=== PATIENT | female | born 1945 | race African-American/Black ===

== ENCOUNTER 2019-11-21 22:43 | Inpatient (IN) | payer MEDICARE, OTHER ==
[~2019-11-21] VITALS: Ht 177.8 cm; Wt 133.0 kg
--- NOTE | 2019-11-21 22:45 | NUR ---
PT BIB EMS FROM [facility] C/O HYPOTENSION SBP 80'S, SOB O2SAT ON 88% RA. PLACED ON 15 LPM PT SATTING 97%. PT AAOX1, SHALLOW RESPIRATIONS NOTED. PT CONNECTED TO THE LABEL CODER AND POX
--- NOTE | 2019-11-21 23:15 | NUR ---
BLOOD COLLECTED AND SENT TO LAB
[2019-11-21 23:23] LABS: BASOPHILS % (AUTO) 0.5 % (0.0-2.0); EOSINOPHILS % (AUTO) 0.1 % (0.0-6.0); HEMATOCRIT 39 % (33-45); HEMOGLOBIN 12.7 g/dL (11.5-14.8); LYMPHOCYTES # (AUTO) 2.2 /CMM (0.8-4.8); LYMPHOCYTES % (AUTO) 25.1 % (20.0-44.0); MEAN CORPUSCULAR HGB CONC 32 g/dl (31.0-36.0); MEAN CORPUSCULAR VOLUME 88 fL (82-100); MONOCYTES # (AUTO) 0.6 /CMM (0.1-1.30); MONOCYTES % (AUTO) 7.2 % (2.0-12.0); NEUTROPHILS # (AUTO) 5.8 /CMM (1.8-8.9); NEUTROPHILS % (AUTO) 67.1 % (43.0-81.0); PLATELET COUNT (AUTO) 191 /CMM (150-450); RED BLOOD CELL COUNT(AUTO) 4.47 MIL/uL (4.0-5.2); WHITE BLOOD COUNT (AUTO) 8.6 K/uL (4.3-11.0)
[2019-11-21] MEDS ORDERED: CEFTRIAXONE 1GM BAG (ER ONLY) 1 GM/50 ML PIGGYBACK IV ONE (23:30)
[2019-11-21] MEDS ORDERED: AZITHROMYCIN 500 MG in IV D5W 250 ML IV ONE (23:30)
[2019-11-21] MEDS ORDERED: IV NS 0.9% 500 ML BAG IV ONE (23:30)
[2019-11-21] MEDS ORDERED: CEFTRIAXONE 1GM BAG (ER ONLY) 50 ML IV ONE (23:46)
[2019-11-21] MEDS ORDERED: AZITHROMYCIN 500 MG VIAL ONE (23:47)
--- NOTE | 2019-11-21 23:49 | NUR ---
URINE COLLECTED AND SENT TO LAB
[2019-11-21 23:51] LABS: CALCIUM, SERUM 8.1 mg/dL (8.5-10.1); CARBON DIOXIDE 21 mmol/L (21-32); CHLORIDE 99 mmol/L (98-107); CREATININE 5.1 mg/dL (0.6-1.3); GLUCOSE 138 mg/dL (74-106); POTASSIUM 4.3 mmol/L (3.5-5.1); SODIUM SERUM 133 mmol/L (136-145); UREA NITROGEN, BLOOD 76 mg/dL (7-18)
[2019-11-22] VITALS (63 sets, daily range): BP systolic 69–179; BP diastolic 36–97
--- NOTE | 2019-11-22 | NUR ---
RT AT BEDSIDE FOR ABG
[2019-11-22 00:03] LABS: ALANINE AMINOTRANSFERASE 31 U/L (12-78); ALKALINE PHOSPHATASE 53 U/L (46-116); ASPARTATE AMINOTRANSFERASE 46 U/L (15-37); B-TYPE NATRIURETIC PEPTIDE 167 PG/ML (0-125); BILIRUBIN,DIRECT 0.1 mg/dL (0.0-0.2); BILIRUBIN,TOTAL 0.3 mg/dL (0.2-1.0); TOTAL PROTEIN, SERUM 7.9 g/dL (6.4-8.2)
[2019-11-22 00:28] LABS: ABG BASE EXCESS -8.7 mmol/L; ABG OXYGEN SATURATION 97.3 % (92.0-98.5); ABG PCO2 37.1 mmHg (35.0-45.0); ABG PH 7.285 (7.350-7.450); ABG PO2 121.1 mmHg (75.0-100.0); AaDO2 554.8 mmHg; COHb 0.3 % (0.5-1.5); MetHb 0.6 % (0.0-1.5); O2Hb 96.4 % (94.0-97.0); SITE, ABG Left Radial; VENT MODE, BG NRB 100%
[2019-11-22] MEDS ORDERED: IV NS 0.9% 500 ML BAG IV ONE (00:30)
[2019-11-22] MEDS ORDERED: PROPOFOL 100 ML ONE (00:55)
[2019-11-22 01:04] LABS: C-REACTIVE PROTEIN 6.8 mg/dL (0.0-0.9)
--- NOTE | 2019-11-22 01:10 | NUR ---
INTUBATION IN PTOGRESS. RT, RN AND DR HERMAN AT BEDSIDE
--- NOTE | 2019-11-22 01:13 | NUR ---
PT INTUBTED BY ER ET-TUBE 7.0FR, 24CM AT THE LIP LINE, (+) COLOR CHANGE ON THE CO2 DETECTOR WITH BILATERAL EQUAL BREATH SOUNDS ON AUSCULTATION.
--- NOTE | 2019-11-22 01:13 | NUR ---
RT NOTE PT INTUBATED WITH 7.5 ET TUBE @ 24 CM LOCATED AT RIGHT LIP LINE. VENT SETTINGS: AC 16, 500, 100%, +5. ET TUBE SECURED VIA ANCHOR FAST. CUFF INFLATED. ALARMS ON AND AUDIBLE. VENT PLUGGED TO RED OUTLET. NO DISTRESS NOTED AT THIS TIME. WILL AWAIT FURTHER ORDERS.
[2019-11-22] MEDS: PROPOFOL 100 ML IV PRN ×5 (01:15→22:22)
[2019-11-22] MEDS ORDERED: PREG50CA PO (01:17)
[2019-11-22] MEDS ORDERED: NPH,100V SQ (01:17)
[2019-11-22] MEDS ORDERED: DIAZ5TAB PO (01:17)
[2019-11-22] MEDS ORDERED: MAGN400O21 PO (01:17)
[2019-11-22] MEDS ORDERED: SENN-261 PO (01:17)
[2019-11-22] MEDS ORDERED: BENA20TA78 PO (01:17)
[2019-11-22] MEDS ORDERED: GLIP5TAB13 PO (01:17)
[2019-11-22] MEDS ORDERED: AMLO10TA7 PO (01:17)
[2019-11-22] MEDS ORDERED: SIMV-46 PO (01:17)
[2019-11-22] MEDS ORDERED: ZOLP12.542 PO (01:17)
[2019-11-22] MEDS ORDERED: BACL10TA PO (01:17)
[2019-11-22] MEDS ORDERED: ESCI5TAB PO (01:17)
[2019-11-22] MEDS ORDERED: ETOMIDATE 2 MG/ML VIAL IV ONE (01:30)
[2019-11-22] MEDS ORDERED: ZOLPIDEM TARTRATE 5 MG TABLET PO PRN (01:30)
[2019-11-22] MEDS ORDERED: ONDANSETRON HCL/PF 4 MG/2 ML VIAL IVP PRN (01:30)
[2019-11-22] MEDS ORDERED: MAGNESIUM HYDROXIDE 30 ML UDC PO PRN (01:30)
[2019-11-22] MEDS ORDERED: Z GUARD REMEDY 2 OZ OINT TP PRN (01:30)
[2019-11-22] MEDS ORDERED: ROCURONIUM BROMIDE 50 MG/5 ML IV ONE (01:30)
[2019-11-22] MEDS ORDERED: DEXTROSE 50%-WATER 50 ML DISP.SYRIN IV PRN (01:30)
--- NOTE | 2019-11-22 01:36 | NUR ---
VENT SETTINGS: AC:16 TV: 500 O2:100% PEEP: 5
--- NOTE | 2019-11-22 01:46 | NUR ---
ICU WILL CALL BACK
--- NOTE | 2019-11-22 02:05 | NUR ---
REPORT GIVEN TO ELISE DELGADO
--- NOTE | 2019-11-22 03:14 | NUR ---
PT TRANSFERRED TO ICU VIA ACLS PROTOCOL
--- NOTE | 2019-11-22 03:16 | NUR ---
RT NOTE PT TRANSFERRED TO ICU IN STABLE CONDITION VIA VENTILATOR. ET TUBE SECURED AND PATENT. ALARMS ON AND AUDIBLE ON VENT. CIRCUIT CLOSED AND PT RECEIVING ADEQUATE VOLUMES. WILL CONTINUE TO MONITOR T/O SHIFT.
[2019-11-22 03:19] LABS: ABG BASE EXCESS -11.4 mmol/L; ABG OXYGEN SATURATION 96.8 % (92.0-98.5); ABG PCO2 46.5 mmHg (35.0-45.0); ABG PH 7.176 (7.350-7.450); ABG PO2 117.8 mmHg (75.0-100.0); AaDO2 548.7 mmHg; COHb 0.3 % (0.5-1.5); MetHb 0.7 % (0.0-1.5); O2Hb 95.8 % (94.0-97.0); SITE, ABG Right Radial
[2019-11-22] MEDS: HYDROXYCHLOROQUINE 200 MG TABLET NG SCH ×2 (03:53→17:04)
[2019-11-22] MEDS: ENOXAPARIN SODIUM 30 MG/0.3 ML DISP.SYRIN SQ SCH ×2 (03:54→22:07)
[2019-11-22] MEDS: IV NS 0.9% 1,000 ML IV PRN ×2 (04:11→18:17)
[2019-11-22 05:00] LABS: BASOPHILS # (AUTO) 0.1 /CMM (0.0-0.2); BASOPHILS % (AUTO) 0.5 % (0.0-2.0); HEMATOCRIT 39 % (33-45); HEMOGLOBIN 12.6 g/dL (11.5-14.8); LYMPHOCYTES # (AUTO) 1.8 /CMM (0.8-4.8); LYMPHOCYTES % (AUTO) 14.8 % (20.0-44.0); MEAN CORPUSCULAR HGB CONC 33 g/dl (31.0-36.0); MEAN CORPUSCULAR VOLUME 88 fL (82-100); MONOCYTES # (AUTO) 0.6 /CMM (0.1-1.30); MONOCYTES % (AUTO) 4.6 % (2.0-12.0); NEUTROPHILS # (AUTO) 9.8 /CMM (1.8-8.9); NEUTROPHILS % (AUTO) 80.1 % (43.0-81.0); PLATELET COUNT (AUTO) 174 /CMM (150-450); RED BLOOD CELL COUNT(AUTO) 4.38 MIL/uL (4.0-5.2); WHITE BLOOD COUNT (AUTO) 12.2 K/uL (4.3-11.0)
[2019-11-22 05:15] LABS: CARBON DIOXIDE 17 mmol/L (21-32); CHLORIDE 101 mmol/L (98-107); GLUCOSE 146 mg/dL (74-106); MAGNESIUM 1.9 mg/dL (1.8-2.4); PHOSPHORUS 6.5 mg/dL (2.5-4.9); POTASSIUM 4.4 mmol/L (3.5-5.1); SODIUM SERUM 134 mmol/L (136-145); UREA NITROGEN, BLOOD 67 mg/dL (7-18)
[2019-11-22 05:22] LABS: CALCIUM, SERUM 7.2 mg/dL (8.5-10.1)
[2019-11-22 05:33] LABS: C-REACTIVE PROTEIN 7.2 mg/dL (0.0-0.9)
[2019-11-22 05:34] LABS: CHOLESTEROL 104 mg/dL (<200); HDL CHOLESTEROL 34 mg/dL (40-60); LDL 45 mg/dL (0-99); TRIGLYCERIDES 222 mg/dL (30-150)
[2019-11-22] MEDS: BLOOD SUGAR DIAGNOSTIC 1 EACH STRIP IN SCH ×3 (06:12→17:06)
[2019-11-22] MEDS: ACETAMINOPHEN 325 MG TABLET PO PRN (06:12)
[2019-11-22] MEDS ORDERED: NOREPINEPHRINE 8MG/250ML RTU 250 ML IV ONE (06:17)
[2019-11-22] MEDS: NOREPINEPHRINE 8 MG in IV NS 0.9% 242 ML IV PRN ×2 (06:37→15:45)
--- NOTE | 2019-11-22 06:38 | NUR ---
FIELD SALES MANAGER NOTE NOTIFIED LUKE ROCHA PT SBP IN THE 70'S WITH ORDERS TO START LEVOPHED TO MAINTAIN SBP >90 AND ORDERED PICC LINE. ORDERS NOTED AND CARRIED OUT. RECEIVED CONSENT FROM JAHAIRA WRIGHT TO INSERT PICC ON PT. WILL MONITOR.
[2019-11-22] MEDS ORDERED: ETOMIDATE 2 MG/ML VIAL ONE (08:00)
[2019-11-22] MEDS ORDERED: ROCURONIUM BROMIDE 50 MG/5 ML ONE (08:00)
[2019-11-22] MEDS ORDERED: INSU100V27 SQ (08:10)
[2019-11-22] MEDS ORDERED: BLOO-668 IN (08:10)
[2019-11-22] MEDS ORDERED: CALC-7 PO (08:10)
[2019-11-22] MEDS ORDERED: GLUC1KIT IM (08:10)
[2019-11-22] MEDS ORDERED: INSU100I26 SQ (08:10)
[2019-11-22] MEDS ORDERED: NA P133E RC (08:10)
[2019-11-22] MEDS ORDERED: MAGN400O6 PO (08:10)
[2019-11-22] MEDS: HYDROCORTISONE SOD SUCCINATE 100 MG/2 ML VIAL IV SCH ×3 (08:16→17:04)
[2019-11-22 08:24] LABS: ABG BASE EXCESS -10.4 mmol/L; ABG OXYGEN SATURATION 97.7 % (92.0-98.5); ABG PCO2 36.8 mmHg (35.0-45.0); ABG PH 7.254 (7.350-7.450); ABG PO2 131.4 mmHg (75.0-100.0); AaDO2 544.8 mmHg; COHb 0.3 % (0.5-1.5); MetHb 0.7 % (0.0-1.5); O2Hb 96.7 % (94.0-97.0); SITE, ABG Right Radial; VENT MODE, BG AC 20 500 100% +5
[2019-11-22] MEDS ORDERED: ENOXAPARIN SODIUM 40 MG/0.4 ML DISP.SYRIN SQ ONE (09:00)
--- NOTE | 2019-11-22 09:45 | NUR ---
MOTORMAN/WOMAN NOTE SEEN BY DR. DELGADO.
--- NOTE | 2019-11-22 11:00 | NUR ---
SUPERVISOR DIE CASTING NOTE DR FOSTER AT BEDSIDE WITH ORDERS TO CHANGE VENT SETTINGS TO AC 26 AND FIO2 85%. WILL MONITOR PT ON VENTILATOR.
[2019-11-22] MEDS: INSULIN REGULAR, HUMAN 100 UNIT/ML 3 ML VIAL SQ PRN ×3 (12:53→17:51)
[2019-11-22] MEDS: PIPERACILLIN /TAZOBACTAM 2.25 G in IV D5W 50 ML IV SCH ×2 (13:13→17:04)
--- NOTE | 2019-11-22 17:00 | NUR ---
COMMERCIAL MARKETING SPECIALIST NOTE PICC LINE NURSE AT BEDSIDE. INSERTED TREVOR PICC TRIPLE LUMEN. PT TOLERATED WELL. WILL MONITOR.
--- NOTE | 2019-11-22 18:27 | NUR ---
JAVA FRONT END WEB DEVELOPER NOTE BLOOD GLUCOSE 438MG/DL, PER PROTOCOL GAVE 10 UNITS REGULAR INSULIN SQ. NOTIFIED DR. DELGADO WITH ORDERS TO GIVE 12 UNITS REGULAR INSULIN IVP X 1 NOW. ORDERS NOTED AND CARRIED OUT. SPOKE WITH DAUGHTER JOHNSON [phone] DELGADO DAUGHTER HAS A FEW QUESTIONS. WILL MONITOR.
[2019-11-22] MEDS ORDERED: INSULIN REGULAR, HUMAN 100 UNIT/ML 3 ML VIAL IV ONE (18:30)
--- NOTE | 2019-11-22 19:25 | NUR ---
ICU/RN NOTES Patient received, sedated with Diprivan at 20 mcg/min/kg, respond to painful stimuli. ETT tube 7.4/24 At the lip line. In no acute distress, breathing even and unlabored. No SOB. No S/S of pain, no facial grimacing. Levophed on hold, BP stable. IV sites with no S/S of infection/infiltration. PICC line intact. Left Nare NGT, intact. Sinus popeye on the monitor. Low grade temperature 99.7. Cooling measures in place. Safety maintained. bed at the lowest locked position. HOB semi Crocker. Isolation precautions maintained. Will continue to monitor as per plan of care. Addendum: 11/23/19 at 2201 by JOSE FLORES RN ETT tube at 7.5/24 lip line
--- NOTE | 2019-11-22 19:46 | NUR ---
RECEIVED PATIENT ORALLY INTUBATED WITH 7.5 ETT SECURED AT 24 CM @ THE LIP ON [facility] VENT WITH NOTED SETTINGS . ALARMS CHECKED AND AUDIBLE. CUFF PRESSURE EMT INTERMEDIATE. AMBU BAG AT [facility]. VENT PLUGGED INTO THE RED OUTLET. SUCTION DONE PRN. NO RESP DISTRESS NOTED. WILL CONT TO MONITOR PATIENT T/O THE SHIFT.
[2019-11-22 21:09] LABS: APPEARANCE,URINE CLEAR (CLEAR); BILIRUBIN,URINE NEGATIVE (NEGATIVE); BLOOD, URINE LARGE Ery/uL (NEGATIVE); COLOR,URINE YELLOW (YELLOW); KETONES,URINE TRACE (NEGATIVE); LEUKOCYTE ESTERASE ,URINE NEGATIVE (NEGATIVE); NITRITE, URINE NEGATIVE (NEGATIVE); PH,URINE 5.5 (5.0-8.0); PROTEIN,URINE 30 mg/dl (NEGATIVE); UGLUCOSE NEGATIVE (NEGATIVE); UROBILINOGEN,URINE 0.2 EU/dL (0.2)
[2019-11-22 21:09] LABS: APPEARANCE,URINE SL CLOUDY (CLEAR); BILIRUBIN,URINE NEGATIVE (NEGATIVE); BLOOD, URINE NEGATIVE Ery/uL (NEGATIVE); COLOR,URINE YELLOW (YELLOW); KETONES,URINE NEGATIVE (NEGATIVE); LEUKOCYTE ESTERASE ,URINE MODERATE (NEGATIVE); NITRITE, URINE NEGATIVE (NEGATIVE); PROTEIN,URINE 100 mg/dl (NEGATIVE); UGLUCOSE NEGATIVE (NEGATIVE); UROBILINOGEN,URINE 0.2 EU/dL (0.2)
[2019-11-22 21:24] LABS: BACTERIA,URINE 3+ /HPF (None Seen); RBC,URINE 0-2 /HPF (0-2); SQUAMOUS EPITHELIAL CELL,UR Few /HPF (None Seen); WBC,URINE 51-80 /HPF (0-3)
[2019-11-22 21:48] LABS: YEAST,URINE Moderate /HPF (None Seen)
[2019-11-22 21:51] LABS: BACTERIA,URINE 1+ /HPF (None Seen); SQUAMOUS EPITHELIAL CELL,UR Few /HPF (None Seen); YEAST,URINE Moderate /HPF (None Seen)
[2019-11-22 21:53] LABS: WBC,URINE 0-2 /HPF (0-3)
[2019-11-22] MEDS ORDERED: AZITHROMYCIN 250 MG in IV D5W 250 ML IV SCH (22:00)
[2019-11-23] VITALS (94 sets, daily range): BP systolic 79–203; BP diastolic 43–94
--- NOTE | 2019-11-23 00:27 | NUR ---
patient temperature 100.3 at this time, cooling measures given, PRN Tylenol given as ordered. Continue to monitor
[2019-11-23] MEDS: PIPERACILLIN /TAZOBACTAM 2.25 G in IV D5W 50 ML IV SCH ×4 (00:32→17:00)
[2019-11-23] MEDS: BLOOD SUGAR DIAGNOSTIC 1 EACH STRIP IN SCH ×4 (00:32→17:50)
[2019-11-23] MEDS: INSULIN REGULAR, HUMAN 100 UNIT/ML 3 ML VIAL SQ PRN ×4 (00:35→17:49)
[2019-11-23] MEDS: ACETAMINOPHEN 325 MG TABLET PO PRN (00:39)
--- NOTE | 2019-11-23 01:08 | NUR ---
Patient temperature went down to 99.4 at this time. will continue to monitor. Cooling measures remained in place.
--- NOTE | 2019-11-23 03:30 | NUR ---
Patient Sinus popeye with rate 43-48 at this time. Blood pressure stable. Called BARREL WASHER Petra Ochoa, relayed vital signs and condition of the patient. She said continue to monitor. with no new order at this time. Patient in no acute distress. Breathing even and unlabored. Will continue to monitor closely
[2019-11-23] MEDS: PROPOFOL 100 ML IV PRN ×5 (03:54→21:34)
[2019-11-23 06:02] LABS: C-REACTIVE PROTEIN 13.5 mg/dL (0.0-0.9)
--- NOTE | 2019-11-23 07:00 | NUR ---
RN NOTES RECEIVED PT ON BED, INTUBATED, SEDATED , ON DIPRIVAN AT 20 MCG/KG/MIN, TOLERATING CURRENT POOJA SETTING WELL,PT ON LEVO AT 0.06 MCG/KG/MIN , NO SOB NOTED, L UPPER ARM PICC LINE SITE CLEAN, DRY AND INTACT, NGT INTACT, SB - SR ON MONITOR, SR UP x3, CALL LIGHT WITHIN EASY REACH, BED LOCKED AND IN LOWEST POSITION, HOB ELEVATED, BED LOCKED AND IN LOWEST POSITION, CONTINUE TO MONITOR.
--- NOTE | 2019-11-23 07:18 | NUR ---
ICU/RN notes Remained in stable condition. In no acute distress. Breathing even and unlabored with prescribed vent settings. Afebrile. Kept clean and dry. needs attendant. Safety maintained. isolation precautions maintained. Endorse to AM shift nurse for ILENE.
[2019-11-23] MEDS: HYDROXYCHLOROQUINE 200 MG TABLET PO SCH ×2 (08:19→22:07)
[2019-11-23] MEDS: HYDROCORTISONE SOD SUCCINATE 100 MG/2 ML VIAL IV SCH ×3 (08:19→16:17)
[2019-11-23 08:45] LABS: ABG BASE EXCESS -10.7 mmol/L; ABG PCO2 32.5 mmHg (35.0-45.0); ABG PH 7.279 (7.350-7.450); ABG PO2 138.6 mmHg (75.0-100.0); AaDO2 433.7 mmHg; COHb 0.3 % (0.5-1.5); MetHb 0.7 % (0.0-1.5); PEEP,BG 5 cm H2O; SITE, ABG Right Radial; VT, ABG 500 mL
--- NOTE | 2019-11-23 08:55 | NUR ---
vent changes below per dr. white: fio2 65% Addendum: 11/23/19 at 0856 by RIVER HENDRICKS RT Amended: Links added.
[2019-11-23 10:57] LABS: CALCIUM, SERUM 6.7 mg/dL (8.5-10.1); CARBON DIOXIDE 16 mmol/L (21-32); CHLORIDE 102 mmol/L (98-107); CREATININE 3.4 mg/dL (0.6-1.3); GLUCOSE 308 mg/dL (74-106); POTASSIUM 4.2 mmol/L (3.5-5.1); SODIUM SERUM 134 mmol/L (136-145); UREA NITROGEN, BLOOD 70 mg/dL (7-18)
[2019-11-23 11:00] LABS: BASOPHILS % (AUTO) 0.4 % (0.0-2.0); HEMATOCRIT 35 % (33-45); HEMOGLOBIN 11.4 g/dL (11.5-14.8); LYMPHOCYTES # (AUTO) 0.7 /CMM (0.8-4.8); LYMPHOCYTES % (AUTO) 5.6 % (20.0-44.0); MEAN CORPUSCULAR HGB CONC 33 g/dl (31.0-36.0); MEAN CORPUSCULAR VOLUME 87 fL (82-100); MONOCYTES # (AUTO) 0.4 /CMM (0.1-1.30); MONOCYTES % (AUTO) 3.5 % (2.0-12.0); NEUTROPHILS % (AUTO) 90.5 % (43.0-81.0); PLATELET COUNT (AUTO) 178 /CMM (150-450); RED BLOOD CELL COUNT(AUTO) 3.99 MIL/uL (4.0-5.2); WHITE BLOOD COUNT (AUTO) 12.2 K/uL (4.3-11.0)
[2019-11-23] MEDS: IV NS 0.9% 1,000 ML IV PRN (11:06)
--- NOTE | 2019-11-23 12:00 | NUR ---
RN NOTES CALL RECEIVED FROM PT'S DAUGHTER THAT SHE WANTS TO TALK TO MD . DR REEVES NOTIFIED VIA ANSWERING SERVICE.
[2019-11-23] MEDS ORDERED: TOCILIZUMAB 400 MG in IV NS 0.9% 80 ML IV ONE (14:00)
--- NOTE | 2019-11-23 15:15 | NUR ---
RN NOTES LEVO GTT RESTARTED DUE TO LOW BP , CONTINUE TO MONITOR
[2019-11-23] MEDS: NOREPINEPHRINE 8 MG in IV NS 0.9% 242 ML IV PRN (16:00)
--- NOTE | 2019-11-23 18:00 | NUR ---
RN NOTES PT REMAINS INTUBATED , SEDATED, ON DIPRIVAN AT 30 MCG/KG/MIN , LEVO AT 0.02 MCG/KG/MIN RUNNING VIA L UPPER ARM PICC LINE , SITE CLEAN, DRY AND INTACT, ON TELE SB-SR , JUNIOR DRAINING TO GRAVITY, SR UP x3, CALL LIGHT WITHIN EASY REACH, BED LOCKED AND IN LOWEST POSITION, WILL ENDORSE TO REPORT ANALYST NURSE FOR CONTINUITY OF CARE.
--- NOTE | 2019-11-23 19:25 | NUR ---
ICU/RN NOTES Patient received, sedated with Diprivan at 30 mcg/min/kg, respond to painful stimuli. ETT tube 7.5/24 At the lip line. In no acute distress, breathing even and unlabored with prescribed vent settings. No SOB. No S/S of pain, no facial grimacing. Levophed at 0.02 mcg/min/kg, BP stable. IV sites with no S/S of infection/infiltration. PICC line intact. Left Nare NGT intact. Sinus popeye on the monitor with rate 44. Safety maintained. bed at the lowest locked position. HOB semi Crocker. Isolation precautions maintained. Will continue to monitor as per plan of care.
--- NOTE | 2019-11-23 21:15 | NUR ---
QTC calculated with Pharmacist Josephine from [facility], Per Josephine it comes up to 502. Called OPERATIONS SYSTEMS SPECIALIST michael Ochoa, relayed Numbers with new order to do STAT EKG for confirmation. Order noted and carried out. Holding Plaquenil until get the results.
--- NOTE | 2019-11-23 21:58 | NUR ---
STAT Ekg results relayed to KRYSTAL Ochoa with order to give the dose of Plaquenil as ordered. Will administer
[2019-11-23] MEDS: ENOXAPARIN SODIUM 30 MG/0.3 ML DISP.SYRIN SQ SCH (22:37)
[2019-11-23 22:53] LABS: ABG BASE EXCESS -9.1 mmol/L; ABG PCO2 31.9 mmHg (35.0-45.0); ABG PH 7.313 (7.350-7.450); AaDO2 316.8 mmHg; PEEP,BG 5 cm H2O; SITE, ABG Right Radial; VT, ABG 500 mL
--- NOTE | 2019-11-23 23:25 | NUR ---
MAXIME's results relayed to Petra Ochoa with no new order at this time. Continue to monitor
[2019-11-24] VITALS (73 sets, daily range): BP systolic 82–159; BP diastolic 42–82
[2019-11-24] MEDS: INSULIN REGULAR, HUMAN 100 UNIT/ML 3 ML VIAL SQ PRN ×5 (01:23→23:48)
[2019-11-24] MEDS: PIPERACILLIN /TAZOBACTAM 2.25 G in IV D5W 50 ML IV SCH ×5 (01:23→23:27)
[2019-11-24] MEDS: PROPOFOL 100 ML IV PRN ×3 (03:11→23:21)
[2019-11-24] MEDS: IV NS 0.9% 1,000 ML IV PRN ×2 (04:57→19:43)
[2019-11-24] MEDS: ACETAMINOPHEN 325 MG TABLET PO PRN ×3 (05:03→19:22)
--- NOTE | 2019-11-24 05:03 | NUR ---
Patient Temperature 100.4 rectal at this time. Cooling measures initiated. PRN Tylenol given. In no acute distress. will monitor closely
[2019-11-24 05:09] LABS: BASOPHILS # (AUTO) 0.1 /CMM (0.0-0.2); BASOPHILS % (AUTO) 0.5 % (0.0-2.0); HEMATOCRIT 37 % (33-45); HEMOGLOBIN 12.1 g/dL (11.5-14.8); LYMPHOCYTES % (AUTO) 5.7 % (20.0-44.0); MEAN CORPUSCULAR HGB CONC 33 g/dl (31.0-36.0); MEAN CORPUSCULAR VOLUME 86 fL (82-100); MONOCYTES # (AUTO) 0.9 /CMM (0.1-1.30); MONOCYTES % (AUTO) 5.2 % (2.0-12.0); NEUTROPHILS # (AUTO) 15.5 /CMM (1.8-8.9); NEUTROPHILS % (AUTO) 88.6 % (43.0-81.0); PLATELET COUNT (AUTO) 235 /CMM (150-450); RED BLOOD CELL COUNT(AUTO) 4.26 MIL/uL (4.0-5.2); WHITE BLOOD COUNT (AUTO) 17.5 K/uL (4.3-11.0)
[2019-11-24 05:10] LABS: CALCIUM, SERUM 7.4 mg/dL (8.5-10.1); CARBON DIOXIDE 17 mmol/L (21-32); CHLORIDE 103 mmol/L (98-107); CREATININE 3.5 mg/dL (0.6-1.3); GLUCOSE 342 mg/dL (74-106); SODIUM SERUM 137 mmol/L (136-145); UREA NITROGEN, BLOOD 73 mg/dL (7-18)
--- NOTE | 2019-11-24 06:42 | NUR ---
Patient temperature still 100.8 rectal, cooling measures are still in place. Continue to monitor.
[2019-11-24] MEDS: BLOOD SUGAR DIAGNOSTIC 1 EACH STRIP IN SCH ×5 (06:51→23:33)
--- NOTE | 2019-11-24 07:18 | NUR ---
Endorse to AM shift nurse for ILENE. In stable condition. In no acute distress. kept clean and dry. Needs attendant.
--- NOTE | 2019-11-24 07:58 | NUR ---
RT PATIENT REC'D ORALLY INTUBATED ON [facility] WITH ORDERED SETTINGS. ETT SECURE AND IN PROPER POSITION. AMBU BAG AT [facility]. AIRWAY SUCTIONED AND PATENT. Addendum: 11/24/19 at 1110 by ROWENA CAMARGO RT Amended: Links added.
--- NOTE | 2019-11-24 08:00 | NUR ---
rn notes received patient,intubated with ett size 7 at 24cm on the lip. sedated with diprivan at 15mcg/kg/min. tolerating current vent setting. breathing unlabored. sating fine. sinus rhythm on the monitor with hr on the 60s. with low dedra fever. no indication of pain noted. ngt on the left nare, in place, clamped at this time. bilateral soft restraints in placce. sarmiento catheter in place draining to clear yellow urine. hob at 30 degree. safety measures in placce. call light within reach. will continue to monitor accordingly
[2019-11-24] MEDS: HYDROXYCHLOROQUINE 200 MG TABLET PO SCH ×2 (09:19→22:03)
[2019-11-24] MEDS: HYDROCORTISONE SOD SUCCINATE 100 MG/2 ML VIAL IV SCH ×3 (09:19→17:24)
[2019-11-24 12:53] LABS: ABG BASE EXCESS -7.6 mmol/L; ABG OXYGEN SATURATION 97.5 % (92.0-98.5); ABG PCO2 30.8 mmHg (35.0-45.0); ABG PH 7.353 (7.350-7.450); ABG PO2 120.9 mmHg (75.0-100.0); AaDO2 309.1 mmHg; COHb 0.3 % (0.5-1.5); MetHb 0.6 % (0.0-1.5); O2Hb 96.6 % (94.0-97.0); SITE, ABG Right Radial
--- NOTE | 2019-11-24 19:27 | NUR ---
rn notes endorsed for continuity of care. not on form of distress. breathing unlabored.tolerating current vent setting. sating fine. still sedated with diprivan at 15mcg/kg/min. all nursing needs attended and met. safety measures in place. call light placed within reach
--- NOTE | 2019-11-24 19:30 | NUR ---
CIGARETTE PAPER TESTER INITIAL SHIFT NOTES RECEIVED PATIENT IN BED, EYES CLOSED, SEDATED ON DIPRIVAN DRIP, ORALLY INTUBATED ON MECHANICAL VENTILATION. JUNIOR AND RECTAL TUBE PATENT AND INTACT, DRAINING WELL. TREVOR PICC WITH DIPRIVAN @ 15MCG/KG/MIN AND NS @ 75ML/HR. ALL PORTS FLUSHED WITH PATENT AND INTACT, FREE FROM ANY S/S OF INFILTRATION OR PHLEBITIS
[2019-11-24] MEDS: ENOXAPARIN SODIUM 30 MG/0.3 ML DISP.SYRIN SQ SCH (22:05)
[2019-11-25] VITALS (54 sets, daily range): BP systolic 101–169; BP diastolic 44–85
[2019-11-25 04:40] LABS: BASOPHILS % (AUTO) 0.1 % (0.0-2.0); HEMATOCRIT 33 % (33-45); LYMPHOCYTES # (AUTO) 0.9 /CMM (0.8-4.8); LYMPHOCYTES % (AUTO) 5.5 % (20.0-44.0); MEAN CORPUSCULAR HGB CONC 33 g/dl (31.0-36.0); MEAN CORPUSCULAR VOLUME 87 fL (82-100); MONOCYTES # (AUTO) 0.7 /CMM (0.1-1.30); MONOCYTES % (AUTO) 4.2 % (2.0-12.0); NEUTROPHILS # (AUTO) 15.2 /CMM (1.8-8.9); NEUTROPHILS % (AUTO) 90.2 % (43.0-81.0); PLATELET COUNT (AUTO) 257 /CMM (150-450); RED BLOOD CELL COUNT(AUTO) 3.83 MIL/uL (4.0-5.2); WHITE BLOOD COUNT (AUTO) 16.8 K/uL (4.3-11.0)
[2019-11-25 04:58] LABS: CALCIUM, SERUM 7.5 mg/dL (8.5-10.1); CARBON DIOXIDE 20 mmol/L (21-32); CHLORIDE 109 mmol/L (98-107); CREATININE 3.8 mg/dL (0.6-1.3); GLUCOSE 260 mg/dL (74-106); POTASSIUM 3.9 mmol/L (3.5-5.1); SODIUM SERUM 141 mmol/L (136-145); UREA NITROGEN, BLOOD 76 mg/dL (7-18)
--- NOTE | 2019-11-25 06:01 | NUR ---
RT NOTE Pt Rec'd orally intubated via ETT sz #7.5 secured at 24cm at the lipline. Pt on [facility] vent on AC mode on noted settings as charted.Pt sx'd for thick mod amt of pale yellow secretions. Alarms are set and audible. Vent plugged into red outlet. ambu bag bedside. Will continue to monitor closely. Addendum: 11/25/19 at 0610 by SANTOSH MEYER RT Amended: Links added.
[2019-11-25] MEDS: BLOOD SUGAR DIAGNOSTIC 1 EACH STRIP IN SCH ×3 (06:49→17:03)
[2019-11-25] MEDS: INSULIN REGULAR, HUMAN 100 UNIT/ML 3 ML VIAL SQ PRN ×3 (06:50→17:06)
[2019-11-25] MEDS: PROPOFOL 100 ML IV PRN ×4 (06:52→22:30)
[2019-11-25] MEDS: PIPERACILLIN /TAZOBACTAM 2.25 G in IV D5W 50 ML IV SCH ×3 (06:55→17:03)
--- NOTE | 2019-11-25 07:00 | NUR ---
STONE OPERATOR NOTES PATIENT RESTING COMFORTABLY, REMAINS ORALLY INTUBATED ON MECHANICAL VENTILATION, DIPRIVAN DRIP @ 15MCG/KG/MIN. NO ACUTE CHANGES THROUGHOUT THE SHIFT. WILL ENDORSE THE PATIENT TO THE AM SHIFT NURSE FOR CONTINUITY OF CARE
--- NOTE | 2019-11-25 07:15 | NUR ---
RN INITIAL NOTES RECEIVED PT INTUBATED, ON VENT. NO RESPIRATORY DISTRESS NOTED. NO SOB NOTED. HOB ELEVATED. PT SEDATED, ON DIPRIVAN AT 15MCG/KG/MIN. NGT IN PLACE, CLAMPED. TREVOR PICC IN PLACE. IVF INFUSING. JUNIOR AND RECTAL TUBE IN PLACE. BLE ELEVATED. FOR WEANING TRIALS TODAY. REPOSITIONING WHEN ABLE. WILL CLOSELY CLOSELY MONITOR
[2019-11-25] MEDS: HYDROXYCHLOROQUINE 200 MG TABLET PO SCH ×2 (08:36→21:07)
[2019-11-25] MEDS: HYDROCORTISONE SOD SUCCINATE 100 MG/2 ML VIAL IV SCH ×3 (08:36→16:27)
--- NOTE | 2019-11-25 09:00 | NUR ---
RN NOTES 0845 SEEN AND EXAMINED BY DR FOSTER. PT OFF SEDATION. OPEN EYES ON VERBAL AND TACTILE STIMULI. PT FOR WEANING TRIALS. WILL CLOSELY MONITOR 0900 SEEN AND EXAMINED BY DR REEVES. AWARE OF LAB VALUES AND CXR RESULT. WILL PUT PT ON SIMV MODE. HOB ELEVATED. WILL CLOSELY MONITOR
[2019-11-25] MEDS: IV NS 0.9% 1,000 ML IV PRN (09:55)
--- NOTE | 2019-11-25 18:46 | NUR ---
RN CLOSING NOTES PT REMAINS INTUBATED, ON VENT. KEPT SEDATED, TITRATED ACCORDINGLY. UNABLE TO TOLERATE WEANING TRIALS. NGT CLAMPED. KEPT CLEAN AND DRY. KEPT COMFORTABLE. BLE ELEVATED. WILL ENDORSE FOR CONTINUITY OF CARE
[2019-11-25] MEDS: ENOXAPARIN SODIUM 30 MG/0.3 ML DISP.SYRIN SQ SCH (21:09)
[2019-11-26] VITALS (30 sets, daily range): BP systolic 99–154; BP diastolic 44–83
[2019-11-26] MEDS: PIPERACILLIN /TAZOBACTAM 2.25 G in IV D5W 50 ML IV SCH ×4 (00:16→17:38)
[2019-11-26] MEDS: IV NS 0.9% 1,000 ML IV PRN ×2 (00:26→14:49)
[2019-11-26] MEDS: BLOOD SUGAR DIAGNOSTIC 1 EACH STRIP IN SCH ×4 (00:40→17:21)
[2019-11-26] MEDS: INSULIN REGULAR, HUMAN 100 UNIT/ML 3 ML VIAL SQ PRN ×4 (00:50→17:22)
--- NOTE | 2019-11-26 04:10 | NUR ---
RN NOTES, RECEIVED PATIENT FROM AMAYA, RN FOR CONTINUATION OF CARE, ON MECHANICAL VENTILATOR TOLERATED SETTINGS WELL, WILL CONTINUE TO MONITOR CLOSELY.
[2019-11-26 04:36] LABS: BASOPHILS # (AUTO) 0.1 /CMM (0.0-0.2); BASOPHILS % (AUTO) 0.4 % (0.0-2.0); HEMATOCRIT 31 % (33-45); HEMOGLOBIN 10.4 g/dL (11.5-14.8); LYMPHOCYTES % (AUTO) 6.2 % (20.0-44.0); MEAN CORPUSCULAR HGB CONC 34 g/dl (31.0-36.0); MEAN CORPUSCULAR VOLUME 86 fL (82-100); MONOCYTES # (AUTO) 0.9 /CMM (0.1-1.30); MONOCYTES % (AUTO) 5.3 % (2.0-12.0); NEUTROPHILS # (AUTO) 14.1 /CMM (1.8-8.9); NEUTROPHILS % (AUTO) 88.1 % (43.0-81.0); PLATELET COUNT (AUTO) 287 /CMM (150-450); RED BLOOD CELL COUNT(AUTO) 3.57 MIL/uL (4.0-5.2)
[2019-11-26 04:50] LABS: CARBON DIOXIDE 22 mmol/L (21-32); CHLORIDE 111 mmol/L (98-107); GLUCOSE 236 mg/dL (74-106); SODIUM SERUM 144 mmol/L (136-145)
[2019-11-26 04:59] LABS: UREA NITROGEN, BLOOD 83 mg/dL (7-18)
[2019-11-26 05:07] LABS: FERRITIN 779 ng/mL (8-388)
[2019-11-26] MEDS: PROPOFOL 100 ML IV PRN ×2 (06:13→11:56)
--- NOTE | 2019-11-26 07:20 | NUR ---
RN NOTES, PATIENT ENDORSED TO HANSEL OLIVARES FOR CONTINUATION OF CARE, PATIENT REMAIN IN STABLE CONDITION, NO DISTRESS/RESP DISTRESS NOTED.
--- NOTE | 2019-11-26 07:20 | NUR ---
RN INITIAL NOTES RECEIVED PT INTUBATED, ON VENT. NO RESPIRATORY DISTRESS NOTED. NO SOB NOTED. HOB ELEVATED. PT SEDATED, ON DIPRIVAN AT 10MCG/KG/MIN. NGT IN PLACE, CLAMPED. TREVOR PICC IN PLACE. IVF INFUSING. JUNIOR AND RECTAL TUBE IN PLACE. BLE ELEVATED. REPOSITIONING WHEN ABLE. WILL CLOSELY CLOSELY MONITOR
[2019-11-26 08:38] LABS: ABG BASE EXCESS -7.5 mmol/L; ABG OXYGEN SATURATION 95.8 % (92.0-98.5); ABG PCO2 32.1 mmHg (35.0-45.0); ABG PH 7.346 (7.350-7.450); ABG PO2 89.8 mmHg (75.0-100.0); AaDO2 230.6 mmHg; COHb 0.3 % (0.5-1.5); MetHb 0.4 % (0.0-1.5); O2Hb 95.1 % (94.0-97.0); PEEP,BG 5 cm H2O; SITE, ABG Right Radial; VT, ABG 500 mL
[2019-11-26] MEDS: HYDROCORTISONE SOD SUCCINATE 100 MG/2 ML VIAL IV SCH ×3 (08:57→17:21)
[2019-11-26] MEDS: HYDROXYCHLOROQUINE 200 MG TABLET PO SCH ×2 (08:57→22:45)
[2019-11-26] MEDS ORDERED: ACETAMINOPHEN 650 MG SUPP.RECT RC ONE (14:00)
[2019-11-26] MEDS ORDERED: diphenhydrAMINE HCL 50 MG/ML VIAL IV ONE (14:00)
[2019-11-26] MEDS ORDERED: ACETAMINOPHEN 650 MG/20.3 ML UDC NG ONE (14:00)
[2019-11-26] MEDS ORDERED: TOCILIZUMAB 400 MG in IV NS 0.9% 80 ML IV ONE (14:30)
--- NOTE | 2019-11-26 18:31 | NUR ---
RN CLOSING NOTES PT REMAINS INTUBATED, ON VENT. NO RESPIRATORY DISTRESS NOTED. KEPT HOB ELEVATED. HR RANGES BETWEEN 40-60S, OSWALDO DUNN DNP AWARE. NGT CLAMPED. KEPT CLEAN AND DRY. KEPT COMFORTABLE. BLE ELEVATED. WILL ENDORSE FOR CONTINUITY OF CARE
--- NOTE | 2019-11-26 20:47 | NUR ---
horticulture worker. initial assessment. received the pt rest on the bed. orally intubated.ett #7,lip 24,ac 26,tv 500,fio2 50%,peep 5. sat 96%, licensed prosthetist/orthotist showing s popeye. fc patent. urine draining. joel soft wrist restraint checked and released. no injury or redness noted flexa seal intact. lt upper arm picc line. ns 75ml/h. hob elevated. lt nare ngt clamped. will continue to monitor vitals.
[2019-11-26] MEDS: ENOXAPARIN SODIUM 30 MG/0.3 ML DISP.SYRIN SQ SCH (22:48)
[2019-11-27] VITALS (50 sets, daily range): BP systolic 116–190; BP diastolic 39–91
[2019-11-27] MEDS: PIPERACILLIN /TAZOBACTAM 2.25 G in IV D5W 50 ML IV SCH ×5 (01:27→23:11)
[2019-11-27] MEDS: PROPOFOL 100 ML IV PRN ×2 (01:30→05:28)
[2019-11-27] MEDS: BLOOD SUGAR DIAGNOSTIC 1 EACH STRIP IN SCH ×5 (01:56→23:53)
[2019-11-27] MEDS: INSULIN REGULAR, HUMAN 100 UNIT/ML 3 ML VIAL SQ PRN ×6 (01:58→23:58)
[2019-11-27 04:58] LABS: BASOPHILS % (AUTO) 0.2 % (0.0-2.0); HEMATOCRIT 32 % (33-45); HEMOGLOBIN 10.5 g/dL (11.5-14.8); LYMPHOCYTES # (AUTO) 1.1 /CMM (0.8-4.8); LYMPHOCYTES % (AUTO) 7.8 % (20.0-44.0); MEAN CORPUSCULAR HGB CONC 33 g/dl (31.0-36.0); MEAN CORPUSCULAR VOLUME 87 fL (82-100); MONOCYTES % (AUTO) 6.7 % (2.0-12.0); NEUTROPHILS # (AUTO) 12.3 /CMM (1.8-8.9); NEUTROPHILS % (AUTO) 85.3 % (43.0-81.0); PLATELET COUNT (AUTO) 322 /CMM (150-450); RED BLOOD CELL COUNT(AUTO) 3.65 MIL/uL (4.0-5.2); WHITE BLOOD COUNT (AUTO) 14.5 K/uL (4.3-11.0)
[2019-11-27 05:15] LABS: ALANINE AMINOTRANSFERASE 34 U/L (12-78); ALBUMIN 1.9 g/dL (3.4-5.0); ALKALINE PHOSPHATASE 50 U/L (46-116); ASPARTATE AMINOTRANSFERASE 37 U/L (15-37); BILIRUBIN,TOTAL 0.3 mg/dL (0.2-1.0); CALCIUM, SERUM 8.4 mg/dL (8.5-10.1); CARBON DIOXIDE 21 mmol/L (21-32); CHLORIDE 114 mmol/L (98-107); CREATININE 3.7 mg/dL (0.6-1.3); GLUCOSE 202 mg/dL (74-106); POTASSIUM 3.7 mmol/L (3.5-5.1); SODIUM SERUM 148 mmol/L (136-145); TOTAL PROTEIN, SERUM 7.1 g/dL (6.4-8.2); UREA NITROGEN, BLOOD 83 mg/dL (7-18)
--- NOTE | 2019-11-27 06:59 | NUR ---
TONAL REGULATOR. CLOSING NOTE. AM CARE GIVEN. REMAINING SAME VENT SETTING TOLERATED WELL, SAT 98%. NO ACUTE DISTRESS NOTED. HEALTHCARE ASSOCIATE SHOWING S JASWINDER. IVF NS 75ML/H, DIPRIVAN 10MCG/KG/MIN. HOB ELEVATED. AFEBRILE. HARPREET SOFT WRIST RESTRAINT CHECKED AND RELEASED. NO INJURY OR REDNESS NOTED. WILL CONTINUE TO MONITOR VITALS.
[2019-11-27] MEDS: HYDROCORTISONE SOD SUCCINATE 100 MG/2 ML VIAL IV SCH ×3 (08:34→17:05)
[2019-11-27 09:32] LABS: ABG BASE EXCESS -6.5 mmol/L; ABG PCO2 31.4 mmHg (35.0-45.0); ABG PH 7.372 (7.350-7.450); ABG PO2 97.7 mmHg (75.0-100.0); AaDO2 223.5 mmHg; COHb 0.3 % (0.5-1.5); MetHb 0.3 % (0.0-1.5); O2Hb 96.4 % (94.0-97.0); PEEP,BG 5 cm H2O; SITE, ABG Right Radial; VT, ABG 500 mL
[2019-11-27] MEDS: IV NS 0.9% 1,000 ML IV PRN ×2 (09:40→21:39)
--- NOTE | 2019-11-27 10:30 | NUR ---
RN NOTES 0900 SEEN AND EXAMINED BY DR FOSTER. PT OFF SEDATION. AWAKE, FOLLOW SIMPLE COMMANDS. HOB ELEVATED. WILL CLOSELY MONITOR 1030 SEEN AND EXAMINED BY OSWALDO DUNN DNP. AWARE OF LAB VALUES AND CXR RESULT. PT'S HR BET 30-40S. BP WNL. WILL CLOSELY MONITOR
[2019-11-27] MEDS: PROPOFOL 10MG/ML 50ML 50 ML IV PRN ×3 (14:02→20:48)
--- NOTE | 2019-11-27 15:05 | NUR ---
RN NOTES CALLED OSWALDO DUNN DNP. MADE AWARE THAT PT'S HR BET 37-40. BP WNL. NO CARDIAC DISTRESS NOTED. STAT EKG DONE, RESULT RELAYED. NO NEW ORDER MADE. WILL CLOSELY MONITOR
--- NOTE | 2019-11-27 18:31 | NUR ---
RN CLOSING NOTES PT REMAINS INTUBATED, ON VENT. NO RESPIRATORY DISTRESS NOTED. KEPT HOB ELEVATED. HR RANGES BETWEEN LOW 30-40S, OSWALDO DUNN,JOSEFINA AWARE. NGT CLAMPED. KEPT CLEAN AND DRY. KEPT COMFORTABLE. BLE ELEVATED. WILL ENDORSE FOR CONTINUITY OF CARE
--- NOTE | 2019-11-27 19:45 | NUR ---
ICU/ENTERPRISE APPLICATIONS MANAGER REPORT RECEIVED FROM THE TO DAY NURSE. SEE FLOWSHEET FOR ASSESSMENT, NO SKIN ISSUES WHICH NEED TO BE ADDRESSED. PT IS ON SEDATION AT THIS TIME DUE TO INTUBATION. PT IS ORALLY INTUBATED WITH SATURATION AT 99-100%. WILL MONITOR THIS PT AND HER SATURATION. PT TURNED AND REPOSITIONED FOR COMFORT AND CARE. NO ACUTE DISTRESS SEEN AT THIS TIME.
--- NOTE | 2019-11-27 20:58 | NUR ---
RT NOTE PT RECEIVED INTUBATED ON 7.5 ET TUBE @ 24 CM ON LEFT LIP LINE. MOVED ET TUBE TO MID LIP LINE. CUFF CHECKED VIA BAND MAKER. SX DONE, ET TUBE SECURED AND PATENT. PT RECEIVING ADEQUATE VOLUMES. ALARMS ON AND AUDIBLE. NO DISTRESS NOTED. WILL MONITOR T/O SHIFT. Addendum: 11/27/19 at 2106 by DAVID BENAVIDES RT Amended: Links added.
[2019-11-27] MEDS: ENOXAPARIN SODIUM 30 MG/0.3 ML DISP.SYRIN SQ SCH (21:12)
--- NOTE | 2019-11-27 21:20 | NUR ---
ICU/SHORT FILLER BUNCH MACHINE OPERATOR PT WAS GIVEN PM CARE, ALONG WITH ORAL CARE. PT TOLERATED THIS WELL, WITH SATURATION IS 99-100. PT WAS TURNED AND REPOSITIONED FOR COMFORT AND CARE. WILL CONTINUE TO MONITOR THIS PT.
--- NOTE | 2019-11-27 23:20 | NUR ---
ICU/GARMENT SEWING MACHINE OPERATOR PT'S BLOOD PRESSURE HAS BEEN ELEVATED TO THE 170'S-180'S, CALLED THE ON-CALL PORSHA BROWN FOR PRN MEDICATION.
[2019-11-28] VITALS (77 sets, daily range): BP systolic 117–193; BP diastolic 51–98
--- NOTE | 2019-11-28 00:14 | NUR ---
ICU/PHARMACY TECHNOLOGIST PT'S BLOOD SUGAR IS 272, THIS WAS COVERED WITH SLIDING SCALE. WILL CONTINUE TO MONITOR THIS PT'S BLOOD SUGAR PER MD'S ORDERERS AND HOSPITAL PROTOCOL.
[2019-11-28] MEDS: hydrALAZINE HCL IV 20 MG VIAL IV PRN ×3 (00:32→21:27)
--- NOTE | 2019-11-28 00:52 | NUR ---
ICU/RETAIL SELLING FLOOR LEADER ON-CALL PORSHA BROWN CALLED BACK ABOUT PRN MEDICATION FOR PT'S BLOOD PRESSURE THAT HAS BEEN ELEVATED TO THE 170'S-180'S,GAVE ORDER FOR PRN APRESOLINE 10MG EVERY 6 HOURS PRN. CHARGE NURSE AWARE AND GAVE PRN. WILL CONTINUE TO MONITOR THIS PT AND HER BLOOD PRESSURE.
--- NOTE | 2019-11-28 01:02 | NUR ---
ICU/YAM CURER BLOOD PRESSURE IS NOW 148/65 AND THE HEART RATE NOW 52 FROM 33. PT APPEARS TO HAVE A POSITIVE RESPONDS TO THE APRESOLINE. WILL CONTINUE TO MONITOR THIS PT AND THE BLOOD PRESSURE.
[2019-11-28] MEDS: PROPOFOL 10MG/ML 50ML 50 ML IV PRN ×2 (02:32→05:23)
--- NOTE | 2019-11-28 03:00 | NUR ---
ICU/COMMUNICATIONS EQUIPMENT INSTALLER PT WAS GIVEN AM CARE, ALONG WITH ORAL CARE. PT TOLERATED THIS WELL, WITH SATURATION IS 99-100%. PT WAS TURNED AND REPOSITIONED FOR COMFORT AND CARE. WILL CONTINUE TO MONITOR THIS PT. NO ACUTE DISTRESS SEEN.
[2019-11-28] MEDS: PIPERACILLIN /TAZOBACTAM 2.25 G in IV D5W 50 ML IV SCH ×3 (05:22→17:04)
[2019-11-28 05:23] LABS: BASOPHILS # (AUTO) 0.1 /CMM (0.0-0.2); BASOPHILS % (AUTO) 0.4 % (0.0-2.0); EOSINOPHILS % (AUTO) 0.3 % (0.0-6.0); HEMATOCRIT 31 % (33-45); LYMPHOCYTES # (AUTO) 1.1 /CMM (0.8-4.8); LYMPHOCYTES % (AUTO) 8.9 % (20.0-44.0); MEAN CORPUSCULAR HGB CONC 32 g/dl (31.0-36.0); MEAN CORPUSCULAR VOLUME 86 fL (82-100); MONOCYTES # (AUTO) 0.7 /CMM (0.1-1.30); MONOCYTES % (AUTO) 5.6 % (2.0-12.0); NEUTROPHILS # (AUTO) 10.6 /CMM (1.8-8.9); NEUTROPHILS % (AUTO) 84.8 % (43.0-81.0); PLATELET COUNT (AUTO) 345 /CMM (150-450); WHITE BLOOD COUNT (AUTO) 12.5 K/uL (4.3-11.0)
--- NOTE | 2019-11-28 05:45 | NUR ---
ICU/AUTHOR'S AGENT AM LABS WERE DONE ALONG WITH CHEST XRAY.
[2019-11-28 05:59] LABS: CALCIUM, SERUM 8.6 mg/dL (8.5-10.1); CARBON DIOXIDE 20 mmol/L (21-32); CHLORIDE 117 mmol/L (98-107); CREATININE 3.5 mg/dL (0.6-1.3); GLUCOSE 177 mg/dL (74-106); MAGNESIUM 2.5 mg/dL (1.8-2.4); PHOSPHORUS 3.8 mg/dL (2.5-4.9); POTASSIUM 3.6 mmol/L (3.5-5.1); SODIUM SERUM 151 mmol/L (136-145)
[2019-11-28 06:00] LABS: UREA NITROGEN, BLOOD 81 mg/dL (7-18)
[2019-11-28] MEDS: BLOOD SUGAR DIAGNOSTIC 1 EACH STRIP IN SCH ×3 (06:13→18:31)
[2019-11-28] MEDS: INSULIN REGULAR, HUMAN 100 UNIT/ML 3 ML VIAL SQ PRN ×3 (06:16→18:31)
--- NOTE | 2019-11-28 07:00 | NUR ---
RN NOTES RECEIVED PT ON BED , INTUBATED,SEDATED ON DIPRIVAN AT 20MCG/KG/MIN. TOLERATING CURRENT VENT SETTING WELL, O2 SAT WNL , HR IN 40'S, SB, RECTAL TUBE INTACT, JUNIOR DRINING TO GRAVITY, NGT INTACT AND CLAMPED, NS AT 75CC /HR RUNNING VIA L UPPER ARM PICC LINE , SITE , CLEAN, DRY AND INTACT, SR UP x3, CALL LIGHT WITHIN EASY, BED LOCKED AND IN LOWEST POSITION, CONTINUE TO MONITOR .
[2019-11-28] MEDS: HYDROCORTISONE SOD SUCCINATE 100 MG/2 ML VIAL IV SCH ×4 (08:24→17:02)
[2019-11-28 09:14] LABS: ABG BASE EXCESS -6.4 mmol/L; ABG OXYGEN SATURATION 93.6 % (92.0-98.5); ABG PCO2 36.1 mmHg (35.0-45.0); ABG PH 7.334 (7.350-7.450); ABG PO2 78.1 mmHg (75.0-100.0); AaDO2 165.6 mmHg; COHb 0.3 % (0.5-1.5); MetHb 0.3 % (0.0-1.5); PEEP,BG 5 cm H2O; SITE, ABG Right Radial; VT, ABG 500 mL
--- NOTE | 2019-11-28 10:00 | NUR ---
RN NOTES CONTINUE TO KEEP PROPOFOL OFF PER DR FOSTER, PT YULIA WEANING TRIAL WELL, CONTINUE TO MONITOR
[2019-11-28] MEDS: IV NS 0.9% 1,000 ML IV PRN (13:30)
--- NOTE | 2019-11-28 14:00 | NUR ---
RN NOTES PT TOLERATING SIMV MODE WELL, ORAL AND ET TUBE SUCTION DONE , CONTINUE TO MONITOR .
--- NOTE | 2019-11-28 15:43 | NUR ---
RT NOTE: PATIENT RECEIVED ORALLY INTUBATED WITH 7.5 ETT SECURED @ 24 CM MID LIP LINE ON MECHANICAL VENT. @0748- ALERT PATIENT PLACED ON SIMV MODE PER . ABG DONE AND REPORTED. EXTUBATION ON HOLD UNTIL HIGH FLOW NASAL CANNULA BECOMES AVAILABLE PER . UTILITY WORKER FORGE ANCELMO Lin NOTIFIED. AT THIS TIME PATIENT IS ALERT AND TOLERATING WEANING. WILL CONTINUE TO MONITOR. VENT PLUGGED INTO RED OUTLET. AMBU BAG AT [facility].
[2019-11-28] MEDS: HYDROCODONE/APAP 5/325MG 1 EACH TABLET PO PRN ×2 (17:02→21:26)
--- NOTE | 2019-11-28 18:51 | NUR ---
RN NOTES PT REMAINS INTUBATED ,STILL OFF PROPOFOL, TOLEIANG SIMV MODE WELL, NS AT 75CC/HR RUNNING VIA L UPPER ARM PICC LINE, SITE CLEAN, DRY AND INTACT, SR UP x3, CALL LIGHT WITHIN EASY REACH, BED LOCKED AND IN LOWEST POSITION, WILL ENDORSE TO CERTIFIED NURSES AIDE NURSE FOR CONTINUITY OF CARE .
--- NOTE | 2019-11-28 19:38 | NUR ---
PT RECEIVED ORALLY INTUBATED WITH 7.5 ET TUBE @ 24 CM LIP LINE. CUFF CHECKED VIA FIRE OFFICIAL. SX DONE, ET TUBE SECURED AND PATENT. NO RESPIRATORY DISTRESS. ALARMS ON AND AUDIBLE. WILL MONITOR T/O SHIFT.
[2019-11-28] MEDS: ENOXAPARIN SODIUM 30 MG/0.3 ML DISP.SYRIN SQ SCH (21:26)
[2019-11-29] VITALS (47 sets, daily range): BP systolic 141–195; BP diastolic 58–114
[2019-11-29] MEDS: BLOOD SUGAR DIAGNOSTIC 1 EACH STRIP IN SCH ×5 (00:37→23:23)
[2019-11-29] MEDS: PIPERACILLIN /TAZOBACTAM 2.25 G in IV D5W 50 ML IV SCH ×2 (00:40→06:01)
[2019-11-29] MEDS: INSULIN REGULAR, HUMAN 100 UNIT/ML 3 ML VIAL SQ PRN ×3 (00:51→23:26)
[2019-11-29] MEDS: HYDROCODONE/APAP 5/325MG 1 EACH TABLET PO PRN ×2 (01:36→05:42)
[2019-11-29] MEDS: hydrALAZINE HCL IV 20 MG VIAL IV PRN ×3 (03:28→22:09)
[2019-11-29] MEDS: IV NS 0.9% 1,000 ML IV PRN ×2 (03:29→17:53)
[2019-11-29 05:01] LABS: BASOPHILS # (AUTO) 0.1 /CMM (0.0-0.2); BASOPHILS % (AUTO) 0.3 % (0.0-2.0); EOSINOPHILS % (AUTO) 0.4 % (0.0-6.0); HEMATOCRIT 32 % (33-45); HEMOGLOBIN 10.5 g/dL (11.5-14.8); LYMPHOCYTES # (AUTO) 1.2 /CMM (0.8-4.8); LYMPHOCYTES % (AUTO) 7.2 % (20.0-44.0); MEAN CORPUSCULAR HGB CONC 33 g/dl (31.0-36.0); MEAN CORPUSCULAR VOLUME 87 fL (82-100); MONOCYTES % (AUTO) 6.1 % (2.0-12.0); NEUTROPHILS # (AUTO) 14.1 /CMM (1.8-8.9); PLATELET COUNT (AUTO) 389 /CMM (150-450); RED BLOOD CELL COUNT(AUTO) 3.69 MIL/uL (4.0-5.2); WHITE BLOOD COUNT (AUTO) 16.4 K/uL (4.3-11.0)
[2019-11-29 05:19] LABS: CALCIUM, SERUM 8.7 mg/dL (8.5-10.1); CARBON DIOXIDE 23 mmol/L (21-32); CHLORIDE 119 mmol/L (98-107); CREATININE 3.4 mg/dL (0.6-1.3); GLUCOSE 141 mg/dL (74-106); MAGNESIUM 2.3 mg/dL (1.8-2.4); PHOSPHORUS 3.8 mg/dL (2.5-4.9); POTASSIUM 3.3 mmol/L (3.5-5.1); SODIUM SERUM 153 mmol/L (136-145); UREA NITROGEN, BLOOD 73 mg/dL (7-18)
[2019-11-29] MEDS ORDERED: DC PROPOFOL WHEN EXTUBATED XX PRN (08:00)
--- NOTE | 2019-11-29 08:10 | NUR ---
received pt from evening or night nurse supervisor, alert, drowsy, SR, intubated, on SIMV, tolerating well, awaiting for high flow device, NPO except med, NG clamped, f/c OK output, v/s stable, no pain, pt turned and repositioned.
--- NOTE | 2019-11-29 09:15 | NUR ---
RT NOTE: LATE ENTRY- ALERT PATIENT EXTUBATED AND PLACED ON OXYGEN AT 6 LPM VIA NASAL CANNULA PER 'S ORDERS. PATIENT TOLERATING WELL. SP02 96%.
[2019-11-29] MEDS: HYDROCORTISONE SOD SUCCINATE 100 MG/2 ML VIAL IV SCH ×3 (09:19→16:03)
[2019-11-29] MEDS ORDERED: POTASSIUM CHLORIDE 20 MEQ POWDER PACKET NG SCH (10:00)
[2019-11-29 11:38] LABS: ABG BASE EXCESS -5.9 mmol/L; ABG OXYGEN SATURATION 95.6 % (92.0-98.5); ABG PCO2 33.1 mmHg (35.0-45.0); ABG PH 7.367 (7.350-7.450); AaDO2 161.1 mmHg; COHb 0.3 % (0.5-1.5); MetHb 0.1 % (0.0-1.5); O2Hb 95.2 % (94.0-97.0); SITE, ABG Right Radial; VENT MODE, BG N/C
--- NOTE | 2019-11-29 16:08 | NUR ---
pt is resting in the bed, alert, follows simple commands, SR, SB, on 6L 02 sat well, f/c OK output, rectal tube in, pt is able to swallow, v/s stable, no pain, pt cleaned, changed and repositioned.
[2019-11-29] MEDS: ENOXAPARIN SODIUM 30 MG/0.3 ML DISP.SYRIN SQ SCH (21:04)
[2019-11-30] VITALS (14 sets, daily range): BP systolic 126–213; BP diastolic 64–118
[2019-11-30] MEDS: BLOOD SUGAR DIAGNOSTIC 1 EACH STRIP IN SCH ×3 (05:26→18:00)
[2019-11-30 05:56] LABS: BASOPHILS # (AUTO) 0.1 /CMM (0.0-0.2); BASOPHILS % (AUTO) 0.5 % (0.0-2.0); EOSINOPHILS % (AUTO) 1.2 % (0.0-6.0); HEMATOCRIT 32 % (33-45); HEMOGLOBIN 10.4 g/dL (11.5-14.8); LYMPHOCYTES # (AUTO) 1.4 /CMM (0.8-4.8); LYMPHOCYTES % (AUTO) 7.8 % (20.0-44.0); MEAN CORPUSCULAR HGB CONC 33 g/dl (31.0-36.0); MEAN CORPUSCULAR VOLUME 87 fL (82-100); MONOCYTES % (AUTO) 5.8 % (2.0-12.0); NEUTROPHILS # (AUTO) 15.1 /CMM (1.8-8.9); NEUTROPHILS % (AUTO) 84.7 % (43.0-81.0); PLATELET COUNT (AUTO) 373 /CMM (150-450); RED BLOOD CELL COUNT(AUTO) 3.63 MIL/uL (4.0-5.2); WHITE BLOOD COUNT (AUTO) 17.8 K/uL (4.3-11.0)
[2019-11-30] MEDS: IV NS 0.9% 1,000 ML IV PRN (06:07)
[2019-11-30 06:11] LABS: CALCIUM, SERUM 8.8 mg/dL (8.5-10.1); CARBON DIOXIDE 22 mmol/L (21-32); CHLORIDE 121 mmol/L (98-107); CREATININE 2.9 mg/dL (0.6-1.3); GLUCOSE 138 mg/dL (74-106); MAGNESIUM 2.2 mg/dL (1.8-2.4); PHOSPHORUS 3.9 mg/dL (2.5-4.9); POTASSIUM 3.9 mmol/L (3.5-5.1); UREA NITROGEN, BLOOD 69 mg/dL (7-18)
--- NOTE | 2019-11-30 06:38 | NUR ---
RN CLOSING NOTE NO ACUTE CHANGES OBSERVED OVERNIGHT. PATIENT AWAKE AND ALERT X 2 IN BED IN SEMI DANIELLE'S POSITION. ON 6L OF O2 VIA NC AND TOLERATING WELL. VITAL SIGNS WNL. PT DENIES PAIN OR DISCOMFORT. PT KEPT CLEAN AND COMFORTABLE. JUNIOR CATHETER PATENT AND IN PLACE DRAINING CLEAR YELLOW URINE. FLEXISEAL IN PLACE AND DRAINING DARK GREEN/BROWNISH LIQUID STOOL. CALL LIGHT WITHIN REACH, SAFETY MEASURES IN PLACE, WILL MONITOR. Addendum: 11/30/19 at 0641 by RICH CARRERA RN WILL ENDORSE TO MORNING RN FOR CONTINUATION OF CARE.
[2019-11-30 06:54] LABS: SODIUM SERUM 156 mmol/L (136-145)
--- NOTE | 2019-11-30 06:55 | NUR ---
RN NOTE RECEIVED ALERT FOR SODIUM 156. STEAM TUNNEL FEEDER MADE AWARE. WILL ENDORSE TO MORNING RN .
[2019-11-30] MEDS: hydrALAZINE HCL IV 20 MG VIAL IV PRN ×2 (07:47→23:59)
[2019-11-30] MEDS: HYDROCORTISONE SOD SUCCINATE 100 MG/2 ML VIAL IV SCH ×2 (08:18→17:36)
--- NOTE | 2019-11-30 08:25 | NUR ---
received pt from pattern changer and repairer, alert, follows commands, on 6L 02 sat well, some non pitting edema all extremities, NPO, f/c OK output, rectal tube in still liquid, SBP 192, hydralazine 10mg ivp given, pt turned and repositioned.
[2019-11-30 08:49] LABS: BAND % (MANUAL) 2 % (0.0-5.0); LYMPHOCYTES % (MANUAL) 9 % (16-48); MONOCYTES % (MANUAL) 4 % (0-11.0); NEUTROPHILS % (MANUAL) 85 (42-76)
[2019-11-30 08:51] LABS: ABG BASE EXCESS -6.6 mmol/L; ABG OXYGEN SATURATION 94.4 % (92.0-98.5); ABG PCO2 29.1 mmHg (35.0-45.0); AaDO2 178.7 mmHg; COHb 0.3 % (0.5-1.5); MetHb 0.3 % (0.0-1.5); O2Hb 93.8 % (94.0-97.0); SITE, ABG Right Radial; VENT MODE, BG NASAL CANNULA
[2019-11-30] MEDS: hydrALAZINE HCL 50 MG TABLET PO SCH ×3 (09:31→17:37)
[2019-11-30] MEDS: HEPARIN SODIUM, PORCINE 5000 UNITS/1 ML VIAL SQ SCH ×2 (09:34→22:15)
[2019-11-30] MEDS: NITROGLYCERIN 30 GM TUBE TP SCH ×2 (09:35→22:24)
[2019-11-30] MEDS: IV D5W 1,000 ML IV PRN ×2 (09:41→22:53)
--- NOTE | 2019-11-30 11:10 | NUR ---
pt transferred to EB, ACLS followed, v/s stable, no pain.
--- NOTE | 2019-11-30 12:59 | NUR ---
NO INSULIN COVERAGE GIVEN D/T PATIENT NPO.
--- NOTE | 2019-11-30 19:05 | NUR ---
NO 1800 INSULIN COVERAGE GIVEN, PATIENT REFUSED DINNER.
--- NOTE | 2019-11-30 19:05 | NUR ---
TRIED CONTACTING SON AND GRANDDAUGHTER X4 TO SPEAK WITH PATIENT. NO RESPONSE FROM EITHER LIBERTARIAN.
--- NOTE | 2019-11-30 19:06 | NUR ---
RN CLOSING NOTE: PATIENT REMAINS IN BED. NO SIGNS OF RESPIRATORY DISTRESS NOTED. TELE MONITOR SINUS SR IN THE 80S. NO SIGNS OF ACUTE DISTRESS NOTED. ISOLATION PRECAUTIONS FOR COVID (+). SAFETY MEASURES IMPLEMENTED, BED IN LOWEST POSITION, LOCKED, SIDE RAILS UP X2, CALL LIGHT WITHIN REACH. WILL ENDORSE TO ONCOMING SHIFT RN FOR CONTINUITY OF CARE.
--- NOTE | 2019-11-30 22:04 | NUR ---
RN NOTE CLARIFICATION OR ORDER: DISCONTINUE LOVENOX AND CONTINUE HEPARIN. TO: DR. JESSICA
[2019-12-01] VITALS: BP 168/84
[2019-12-01] MEDS: INSULIN REGULAR, HUMAN 100 UNIT/ML 3 ML VIAL SQ PRN ×3 (00:06→12:36)
[2019-12-01] MEDS: BLOOD SUGAR DIAGNOSTIC 1 EACH STRIP IN SCH ×4 (00:13→17:11)
--- NOTE | 2019-12-01 00:30 | NUR ---
RN NOTE BLOOD PRESSURE RECHECKED POST ADMINISTRATION OF HYDRALAZINE 10MG IV PRN. BP: 153/76 hr: 75
[2019-12-01 04:00] VITALS: BP 151/78
--- NOTE | 2019-12-01 06:59 | NUR ---
RN CLOSING NOTE NO ACUTE CHANGES OBSERVED OVERNIGHT. WILL ENDORSE TO MORNING RN FOR CONTINUATION OF CARE.
[2019-12-01 07:24] LABS: BASOPHILS # (AUTO) 0.1 /CMM (0.0-0.2); BASOPHILS % (AUTO) 0.5 % (0.0-2.0); EOSINOPHILS % (AUTO) 1.3 % (0.0-6.0); HEMATOCRIT 32 % (33-45); HEMOGLOBIN 10.3 g/dL (11.5-14.8); LYMPHOCYTES # (AUTO) 1.2 /CMM (0.8-4.8); LYMPHOCYTES % (AUTO) 6.6 % (20.0-44.0); MEAN CORPUSCULAR HGB CONC 33 g/dl (31.0-36.0); MEAN CORPUSCULAR VOLUME 87 fL (82-100); MONOCYTES # (AUTO) 0.7 /CMM (0.1-1.30); MONOCYTES % (AUTO) 3.7 % (2.0-12.0); NEUTROPHILS # (AUTO) 16.5 /CMM (1.8-8.9); NEUTROPHILS % (AUTO) 87.9 % (43.0-81.0); PLATELET COUNT (AUTO) 357 /CMM (150-450); RED BLOOD CELL COUNT(AUTO) 3.62 MIL/uL (4.0-5.2); WHITE BLOOD COUNT (AUTO) 18.8 K/uL (4.3-11.0)
[2019-12-01 07:40] LABS: ALANINE AMINOTRANSFERASE 54 U/L (12-78); ALBUMIN 2.5 g/dL (3.4-5.0); ALKALINE PHOSPHATASE 70 U/L (46-116); ASPARTATE AMINOTRANSFERASE 44 U/L (15-37); BILIRUBIN,TOTAL 0.4 mg/dL (0.2-1.0); CALCIUM, SERUM 8.8 mg/dL (8.5-10.1); CARBON DIOXIDE 21 mmol/L (21-32); CHLORIDE 111 mmol/L (98-107); CREATININE 2.5 mg/dL (0.6-1.3); GLUCOSE 164 mg/dL (74-106); MAGNESIUM 1.9 mg/dL (1.8-2.4); PHOSPHORUS 4.3 mg/dL (2.5-4.9); POTASSIUM 3.8 mmol/L (3.5-5.1); SODIUM SERUM 144 mmol/L (136-145); TOTAL PROTEIN, SERUM 6.9 g/dL (6.4-8.2); UREA NITROGEN, BLOOD 61 mg/dL (7-18)
[2019-12-01 08:00] VITALS: BP_SYST 151; BP_DIAS 75; BP_DIAS 78
--- NOTE | 2019-12-01 08:00 | NUR ---
RN OPENING NOTE RECEIVED PATIENT IN BED. A&OX2-3, WITH CONFUSION. PT. ON 5L O2 VIA NC WITH HUMIDIFIER, WHEEZING NOTED, BUT SATURATING WELL AT 94%. ABG DONE BY RT. PT. ON TELE MONITOR, SR NOTED. PT. HAS FLEXISEAL, INTACT AND FLUSHED WELL. DRAINAGE CLEAR LIQUID. JUNIOR CATHETER IN PLACE, YELLOW CLEAR URINE. PT. HAS TREVOR PICC LINE, IV FLUID RUNNING WELL, INTACT AND FLUSHED WELL. REMOVED PERIPHERAL IV ON RIGHT WRIST, DUE TO PAINFUL WHEN FLUSHED. SAFETY MAINTAINED. CALL LIGHT WITHIN REACH. WILL CONTINUE TO MONITOR CLOSELY.
[2019-12-01 08:31] LABS: ABG BASE EXCESS -6.3 mmol/L; ABG OXYGEN SATURATION 94.1 % (92.0-98.5); ABG PH 7.352 (7.350-7.450); AaDO2 240.3 mmHg; COHb 0.3 % (0.5-1.5); MetHb 0.5 % (0.0-1.5); O2Hb 93.3 % (94.0-97.0); SITE, ABG Right Radial; VENT MODE, BG 50% N/C
[2019-12-01 08:35] LABS: BAND % (MANUAL) 2 % (0.0-5.0); LYMPHOCYTES % (MANUAL) 10 % (16-48); MONOCYTES % (MANUAL) 7 % (0-11.0); NEUTROPHILS % (MANUAL) 81 (42-76)
[2019-12-01] MEDS: HYDROCORTISONE SOD SUCCINATE 100 MG/2 ML VIAL IV SCH ×2 (08:42→16:39)
[2019-12-01] MEDS: hydrALAZINE HCL 50 MG TABLET PO SCH ×3 (08:43→16:42)
[2019-12-01] MEDS: HEPARIN SODIUM, PORCINE 5000 UNITS/1 ML VIAL SQ SCH ×2 (08:44→21:29)
[2019-12-01] MEDS: NITROGLYCERIN 30 GM TUBE TP SCH ×2 (08:46→21:29)
[2019-12-01] MEDS: NIFEdipine XL 60 MG TAB PO SCH (10:43)
--- NOTE | 2019-12-01 10:46 | NUR ---
GUARDIAN AD LITEM NOTE SEEN Y DR QUE SWARTZ DONE AND RESULT GIVE , NOTIGIED THAT WHEZZING STSTED CONT ON 5L NC WILL MONITOR Addendum: 12/01/19 at 1048 by FELICITY DAS RN SEEN BY DR MENDOZA AWARE THAT STILL WHEEZING UPON AUSCULTATION AWARE OF CHEST X RAY RESULT OK TO CONT N L NC OF O2
--- NOTE | 2019-12-01 11:00 | NUR ---
lester marie note seen by sr able to change copped diet Addendum: 12/01/19 at 1534 by FLORENCIA CRAWFORD RN MECHANICAL SOFT DIET PER ST
[2019-12-01 12:00] VITALS: BP 164/84
[2019-12-01] MEDS: IV D5W 1,000 ML IV PRN (12:33)
--- NOTE | 2019-12-01 15:34 | NUR ---
LINOLEUM TILE FLOOR LAYER NOTE TB GOLD RESULT PLACED IN CHART, LAB FAXED
[2019-12-01 16:00] VITALS: BP_SYST 114; BP_SYST 140; BP_DIAS 75; BP_DIAS 79
--- NOTE | 2019-12-01 16:45 | NUR ---
REGULATORY AFFAIRS MANAGER NOTE PER DR OSWALDO GUERRA OK TO D\C HOME MEDS AT HIS TIME
--- NOTE | 2019-12-01 18:39 | NUR ---
RN CLOSING NOTE PATIENT REFUSED TO EAT. PATIENT STILL ON 5L O2 VIA NC WITH HUMIDIFIER. WHEEZING NOTED, BUT PATIENT SATURATING WELL AT 95%. SAFETY MAINTAINED. CALL LIGHT WITHIN REACH. WILL CONTINUE TO MONITOR AND WILL ENDORSE PATIENT TO PM NURSE.
[2019-12-01 20:00] VITALS: BP 143/70
[2019-12-02] VITALS (7 sets, daily range): BP systolic 124–145; BP diastolic 59–82
[2019-12-02] MEDS: BLOOD SUGAR DIAGNOSTIC 1 EACH STRIP IN SCH ×5 (00:17→23:11)
[2019-12-02] MEDS: INSULIN REGULAR, HUMAN 100 UNIT/ML 3 ML VIAL SQ PRN ×5 (00:18→23:15)
[2019-12-02] MEDS: IV D5W 1,000 ML IV PRN ×2 (02:11→15:43)
--- NOTE | 2019-12-02 06:44 | NUR ---
DOT COMPLIANCE COORDINATOR PATIENT IN BED WITH NO SIGN OF ANY DISTRESS. PATIENT SATURATING AT 97% ON 5L OF 02 WITH NASAL CANNULA. ALL NEEDS MED WITH PATIENT. NO FEVER OVERNIGHT/ WILL ENDORSE PATIENT TO MORNING SHIFT NURSE FOR ILENE.
[2019-12-02] MEDS: NITROGLYCERIN 30 GM TUBE TP SCH ×2 (09:00→21:16)
[2019-12-02] MEDS: hydrALAZINE HCL 50 MG TABLET PO SCH ×3 (09:23→17:02)
[2019-12-02] MEDS: HYDROCORTISONE SOD SUCCINATE 100 MG/2 ML VIAL IV SCH ×2 (09:23→17:02)
[2019-12-02] MEDS: NIFEdipine XL 60 MG TAB PO SCH (09:24)
[2019-12-02] MEDS: HEPARIN SODIUM, PORCINE 5000 UNITS/1 ML VIAL SQ SCH ×2 (09:25→21:24)
--- NOTE | 2019-12-02 18:56 | NUR ---
RN CLOSING NOTE: PATIENT REMAINS IN BED. NO SIGNS OF RESPIRATORY DISTRESS NOTED. TELE MONITOR SINUS SR IN THE 80S. NO SIGNS OF ACUTE DISTRESS NOTED. ISOLATION PRECAUTIONS FOR COVID (+). SAFETY MEASURES IMPLEMENTED, BED IN LOWEST POSITION, LOCKED, SIDE RAILS UP X2, CALL LIGHT WITHIN REACH.ALL NEEDS ATTENDED. WILL ENDORSE TO ONCOMING SHIFT RN FOR CONTINUITY OF CARE.
--- NOTE | 2019-12-02 19:10 | NUR ---
ORDER PICKER/ASSEMBLER NOTES RECEIVED PT IN BED AWAKE AND ABLE TO MAKE NEEDS KWNON. PT A/O X2-3 WITH PERIODS OF CONFUSION. RESPIRATIONS EVEN AND UNLABORED WITH NO S/S OF ACUTE DISTRESS OR SOB NOTED. PT NOTED WITH TREVOR PICC LINE PATENT AND INTACT INFUSING D5 @75CC/HR. PT NOTED WITH FC WELL RECTAL TUBE. SAFETY MEASURES IN PLACE WITH BED IN LOWEST LOCKED POSITION WITH SIDE RAILS UP X2. CALL LIGHT WITHIN REACH. WILL CONTINUE TO MONITOR.
--- NOTE | 2019-12-02 23:04 | NUR ---
telecommunications manager notes pt transferred to ms2 for muna.
--- NOTE | 2019-12-02 23:20 | NUR ---
manager tax opening notes Received Pt from EB. Pt is sitting in bed comfortably watching TV. Respiration is normal and unlabored. No SOB. No S/S of distress noted. Tele monitor showed SR HR at 90 bpm. TREVOR Piccline is clean, intact and infusing well D5W @ 75 ml/hr. Urbina cath is intact, patent and draining clear yellow urine. Rectal tube is intact and patent. Contact and droplet precautions are maintained. Safety precautions is maintained. Bed at low position, brakes locked, side rails upX2, bed alarm is on and call light is within reach. Will continue to monitor. Addendum: 12/02/19 at 2345 by RYAN HUDDLESTON RN Pt is alert and orientedX2 and forgetful.
[2019-12-03 00:30] VITALS: BP_SYST 112; BP_SYST 126; BP_DIAS 59; BP_DIAS 90
[2019-12-03 04:00] VITALS: BP 122/47
[2019-12-03 04:07] VITALS: BP 122/47
[2019-12-03] MEDS: BLOOD SUGAR DIAGNOSTIC 1 EACH STRIP IN SCH ×3 (05:00→17:50)
[2019-12-03] MEDS: INSULIN REGULAR, HUMAN 100 UNIT/ML 3 ML VIAL SQ PRN ×3 (05:02→17:49)
--- NOTE | 2019-12-03 06:50 | NUR ---
pot puller closing notes Pt is resting in bed comfortably. Pt is alert and orientedX2 and easily forgetful. Respiration is normal and unlabored. No SOB. No S/S of distress noted. VS is stable. Tele monitor showed SR HR at 86 bpm. TREVOR Piccline is clean, intact and infusing well D5W @ 75 ml/hr. Urbina cath is intact, patent and draining clear yellow urine. Rectal tube is intact, patent and draining green liquid stool. Contact and droplet precautions are maintained. Kept Pt clean, dry and comfortable. All needs met and attended. Safety precautions is maintained. Bed at low position, brakes locked, side rails upX2, bed alarm is on and call light is within reach. Will endorse to morning nurse for ILENE.
--- NOTE | 2019-12-03 08:00 | NUR ---
PLATE FINISHER NOTES PATIENT IN BED RESTING NO SOB OR ACUTE DISTRESS NOTED. PATIENT IS ALERT, ORIENTED X2. PICC LINE INTACT PATENT. JUNIOR AND FLEXI SEAL INTACT PATENT. BED IN LOW LOCKED POSITION. CALL LIGHT WITHIN REACH. WILL CONTINUE TO MONITOR.
[2019-12-03 08:06] LABS: BASOPHILS # (AUTO) 0.1 /CMM (0.0-0.2); BASOPHILS % (AUTO) 0.7 % (0.0-2.0); EOSINOPHILS % (AUTO) 1.1 % (0.0-6.0); HEMATOCRIT 31 % (33-45); LYMPHOCYTES # (AUTO) 1.7 /CMM (0.8-4.8); LYMPHOCYTES % (AUTO) 10.8 % (20.0-44.0); MEAN CORPUSCULAR HGB CONC 33 g/dl (31.0-36.0); MEAN CORPUSCULAR VOLUME 87 fL (82-100); MONOCYTES # (AUTO) 0.8 /CMM (0.1-1.30); NEUTROPHILS # (AUTO) 12.8 /CMM (1.8-8.9); NEUTROPHILS % (AUTO) 82.4 % (43.0-81.0); PLATELET COUNT (AUTO) 257 /CMM (150-450); WHITE BLOOD COUNT (AUTO) 15.6 K/uL (4.3-11.0)
[2019-12-03 08:07] VITALS: BP 115/58
[2019-12-03 08:26] LABS: CALCIUM, SERUM 8.6 mg/dL (8.5-10.1); CARBON DIOXIDE 25 mmol/L (21-32); CHLORIDE 108 mmol/L (98-107); CREATININE 1.9 mg/dL (0.6-1.3); GLUCOSE 140 mg/dL (74-106); MAGNESIUM 1.8 mg/dL (1.8-2.4); PHOSPHORUS 3.2 mg/dL (2.5-4.9); POTASSIUM 3.4 mmol/L (3.5-5.1); SODIUM SERUM 142 mmol/L (136-145); UREA NITROGEN, BLOOD 42 mg/dL (7-18)
[2019-12-03 08:33] LABS: BAND % (MANUAL) 1 % (0.0-5.0); EOSINOPHILS % (MANUAL) 2 % (0-4); LYMPHOCYTES % (MANUAL) 15 % (16-48); MONOCYTES % (MANUAL) 5 % (0-11.0); NEUTROPHILS % (MANUAL) 77 (42-76)
[2019-12-03] MEDS: hydrALAZINE HCL 50 MG TABLET PO SCH ×3 (09:00→17:07)
[2019-12-03] MEDS: NITROGLYCERIN 30 GM TUBE TP SCH ×2 (09:00→21:51)
[2019-12-03] MEDS: NIFEdipine XL 60 MG TAB PO SCH (09:00)
[2019-12-03] MEDS: HYDROCORTISONE SOD SUCCINATE 100 MG/2 ML VIAL IV SCH ×2 (09:46→17:06)
[2019-12-03] MEDS: HEPARIN SODIUM, PORCINE 5000 UNITS/1 ML VIAL SQ SCH ×2 (09:52→21:48)
[2019-12-03] MEDS ORDERED: POTASSIUM CHLORIDE 10 MEQ TABLET.SA PO ONE (10:30)
[2019-12-03] MEDS ORDERED: POTASSIUM CHLORIDE 20 MEQ TAB.PRT.SR PO SCH (12:00)
[2019-12-03 16:15] VITALS: BP 147/73
[2019-12-03] MEDS: IV D5W 1,000 ML IV PRN (17:41)
--- NOTE | 2019-12-03 19:01 | NUR ---
ROBOTIC MAINTENANCE TECHNICIAN NOTES PATIENT IN BED RESTING NO SOB OR ACUTE DISTRESS NOTED. PATIENT RESTING IN BED. NO ACUTE CHANGES NOTED DURING SHIFT. WILL ENDORSE CARE TO PM SHIFT.
--- NOTE | 2019-12-03 19:45 | NUR ---
PRESENTATION DESIGNER NOTES RECEIVED PATIENT IN BED RESTING COMFORTABLY, NO SOB OR ACUTE DISTRESS NOTED. PATIENT IS ALERT, ORIENTED X2. PICC LINE INTACT PATENT. JUNIOR AND FLEXI SEAL INTACT PATENT. SAFETY MEASURES IN PLACE, BED IN LOW LOCKED POSITION. CALL LIGHT WITHIN EASY REACH. ASPIRATION PRECAUTION EMPHASIZE. WILL CONTINUE TO MONITOR ACCORDINGLY.
[2019-12-03 20:39] VITALS: BP 164/80
[2019-12-04] MEDS: BLOOD SUGAR DIAGNOSTIC 1 EACH STRIP IN SCH ×4 (00:14→19:16)
[2019-12-04] MEDS: INSULIN REGULAR, HUMAN 100 UNIT/ML 3 ML VIAL SQ PRN ×4 (00:29→18:41)
[2019-12-04] MEDS: HYDROCODONE/APAP 5/325MG 1 EACH TABLET PO PRN (03:12)
[2019-12-04 04:48] VITALS: BP 152/77
--- NOTE | 2019-12-04 06:10 | NUR ---
STONE CIRCULAR SAWYER NOTES RECEIVED PATIENT IN BED RESTING COMFORTABLY, NO SOB OR ACUTE DISTRESS NOTED. PATIENT IS ALERT, ORIENTED X2. PICC LINE INTACT PATENT. JUNIOR AND FLEXI SEAL INTACT PATENT. SAFETY MEASURES IN PLACE, BED IN LOW LOCKED POSITION. CALL LIGHT WITHIN EASY REACH. ASPIRATION PRECAUTION EMPHASIZE. TELE MONITOR READS SINUS RHYTHM 60s TO 80s. REPOSITIONED FOR COMFORT. WILL CONTINUE ENDORSE TO AM NURSE FOR CONTINUITY OF CARE.
[2019-12-04 06:52] LABS: CALCIUM, SERUM 8.2 mg/dL (8.5-10.1); CARBON DIOXIDE 27 mmol/L (21-32); CHLORIDE 102 mmol/L (98-107); CREATININE 1.9 mg/dL (0.6-1.3); GLUCOSE 314 mg/dL (74-106); MAGNESIUM 1.7 mg/dL (1.8-2.4); PHOSPHORUS 2.9 mg/dL (2.5-4.9); POTASSIUM 3.5 mmol/L (3.5-5.1); SODIUM SERUM 136 mmol/L (136-145); UREA NITROGEN, BLOOD 35 mg/dL (7-18)
[2019-12-04 06:56] LABS: BASOPHILS # (AUTO) 0.1 /CMM (0.0-0.2); BASOPHILS % (AUTO) 0.5 % (0.0-2.0); EOSINOPHILS % (AUTO) 1.1 % (0.0-6.0); HEMATOCRIT 30 % (33-45); HEMOGLOBIN 9.7 g/dL (11.5-14.8); LYMPHOCYTES # (AUTO) 1.3 /CMM (0.8-4.8); LYMPHOCYTES % (AUTO) 10.1 % (20.0-44.0); MEAN CORPUSCULAR HGB CONC 33 g/dl (31.0-36.0); MEAN CORPUSCULAR VOLUME 87 fL (82-100); MONOCYTES # (AUTO) 0.8 /CMM (0.1-1.30); MONOCYTES % (AUTO) 6.3 % (2.0-12.0); NEUTROPHILS # (AUTO) 10.4 /CMM (1.8-8.9); PLATELET COUNT (AUTO) 274 /CMM (150-450); RED BLOOD CELL COUNT(AUTO) 3.43 MIL/uL (4.0-5.2); WHITE BLOOD COUNT (AUTO) 12.7 K/uL (4.3-11.0)
[2019-12-04 07:01] LABS: C-REACTIVE PROTEIN 0.8 mg/dL (0.0-0.9)
--- NOTE | 2019-12-04 07:30 | NUR ---
NAME PLATE STAMPING MACHINE OPERATOR NOTES PT IN BED, RESTING, ALERT AND ORIENTED, DENIES PAIN, NOT IN DISTRESS, CALL LIGHT WITHIN REACH, ISOLATION PRECAUTIONS OBSERVED, NEEDS ATTENDED.
[2019-12-04 08:00] VITALS: BP 141/91
[2019-12-04] MEDS: HYDROCORTISONE SOD SUCCINATE 100 MG/2 ML VIAL IV SCH ×2 (09:12→17:27)
[2019-12-04] MEDS: hydrALAZINE HCL 50 MG TABLET PO SCH ×3 (09:13→17:28)
[2019-12-04] MEDS: NIFEdipine XL 60 MG TAB PO SCH (09:13)
[2019-12-04] MEDS: HEPARIN SODIUM, PORCINE 5000 UNITS/1 ML VIAL SQ SCH ×2 (09:15→22:08)
[2019-12-04] MEDS: NITROGLYCERIN 30 GM TUBE TP SCH ×2 (09:34→22:08)
[2019-12-04] MEDS ORDERED: Magnesium 1GM/D5W 100ML PREMIX 100 ML IV SCH (09:55)
[2019-12-04 11:30] LABS: EOSINOPHILS % (MANUAL) 1 % (0-4); LYMPHOCYTES % (MANUAL) 7 % (16-48); MONOCYTES % (MANUAL) 7 % (0-11.0); MYELOCYTES % 2 % (0-0); NEUTROPHILS % (MANUAL) 83 (42-76)
[2019-12-04 12:08] VITALS: BP 151/95
[2019-12-04 16:00] VITALS: BP 140/78
[2019-12-04] MEDS: IV D5W 1,000 ML IV PRN (17:30)
--- NOTE | 2019-12-04 18:00 | NUR ---
BEHAVIORAL HEALTH ASSISTANT NOTES PT IN BED, AWAKE, ALERT AND FORGETFUL, NO COMPLAINT OF PAIN, NOT IN DISTRESS, SEEN BY JOSÉ LUIS MARTI FOR PT EVAL IF ABLE, RECTAL TUBE REMOVED PER MD ORDER, PT TOLERATED PROCEDURE WELL, NOTED EXCORIATION TO BUTTOCKS AND INNER THIGH AREA, DRESSING CHANGED, REPOSITIONED FOR COMFORT, PM MEDS GIVEN, ALL NEEDS ATTENDED.
[2019-12-04 20:25] VITALS: BP 127/69
[2019-12-05] VITALS (8 sets, daily range): BP systolic 121–151; BP diastolic 66–86
[2019-12-05] MEDS: BLOOD SUGAR DIAGNOSTIC 1 EACH STRIP IN SCH ×5 (00:01→23:42)
[2019-12-05] MEDS: INSULIN REGULAR, HUMAN 100 UNIT/ML 3 ML VIAL SQ PRN ×4 (00:03→17:43)
--- NOTE | 2019-12-05 06:50 | NUR ---
FORKLIFT DRIVER NOTES AWAKE & RESPONSIVE. NOT IN ANY DISTRESS. NO SOB NOTED. DENIES ANY PAIN OR DISCOMFORT AT THIS TIME. ON TELE SR @ 81 WITH PICC LINE PATENT & INTACT. WITH F/C DRAINING TO YELLOWISH OUTPUT MODERATE IN AMOUNT. AM CARE DONE. MONITORED ACCORDINGLY. CALL LIGHT WITHIN REACH. BED IN LOWEST POSITION. SR UP X 3 FOR SAFETY WITH BED ALARM ON. WILL ENDORSE TO NEXT SHIFT.
--- NOTE | 2019-12-05 08:00 | NUR ---
PREKINDERGARTEN TEACHER NOTES AWAKE & RESPONSIVE. NOT IN ANY DISTRESS. NO SOB NOTED. DENIES ANY PAIN OR DISCOMFORT AT THIS TIME. ON TELE SR @ 81 WITH PICC LINE PATENT & INTACT. WITH F/C DRAINING TO YELLOWISH OUTPUT MODERATE IN AMOUNT. TX DONE ORDERED.AM CARE DONE. MONITORED ACCORDINGLY.ON COVID POSITIVE ISOLATION PRECAUTIONS. CALL LIGHT WITHIN REACH. BED IN LOWEST POSITION. SR UP X 3 FOR SAFETY WITH BED ALARM ON.
[2019-12-05 08:04] LABS: BASOPHILS # (AUTO) 0.1 /CMM (0.0-0.2); BASOPHILS % (AUTO) 0.9 % (0.0-2.0); EOSINOPHILS % (AUTO) 1.6 % (0.0-6.0); HEMATOCRIT 32 % (33-45); HEMOGLOBIN 10.4 g/dL (11.5-14.8); LYMPHOCYTES # (AUTO) 1.4 /CMM (0.8-4.8); LYMPHOCYTES % (AUTO) 11.6 % (20.0-44.0); MEAN CORPUSCULAR HGB CONC 33 g/dl (31.0-36.0); MEAN CORPUSCULAR VOLUME 88 fL (82-100); MONOCYTES # (AUTO) 0.8 /CMM (0.1-1.30); MONOCYTES % (AUTO) 6.4 % (2.0-12.0); NEUTROPHILS # (AUTO) 9.7 /CMM (1.8-8.9); NEUTROPHILS % (AUTO) 79.5 % (43.0-81.0); PLATELET COUNT (AUTO) 271 /CMM (150-450); RED BLOOD CELL COUNT(AUTO) 3.66 MIL/uL (4.0-5.2); WHITE BLOOD COUNT (AUTO) 12.2 K/uL (4.3-11.0)
[2019-12-05 08:32] LABS: CALCIUM, SERUM 8.7 mg/dL (8.5-10.1); CARBON DIOXIDE 27 mmol/L (21-32); CHLORIDE 106 mmol/L (98-107); CREATININE 1.9 mg/dL (0.6-1.3); GLUCOSE 193 mg/dL (74-106); MAGNESIUM 1.9 mg/dL (1.8-2.4); PHOSPHORUS 3.2 mg/dL (2.5-4.9); POTASSIUM 4.2 mmol/L (3.5-5.1); SODIUM SERUM 140 mmol/L (136-145); UREA NITROGEN, BLOOD 31 mg/dL (7-18)
[2019-12-05 08:58] LABS: ABG BASE EXCESS -2.5 mmol/L; ABG OXYGEN SATURATION 96.2 % (92.0-98.5); ABG PCO2 38.8 mmHg (35.0-45.0); ABG PH 7.379 (7.350-7.450); ABG PO2 87.7 mmHg (75.0-100.0); AaDO2 225.2 mmHg; COHb 0.3 % (0.5-1.5); MetHb 0.4 % (0.0-1.5); O2Hb 95.5 % (94.0-97.0); SITE, ABG Right Radial; VENT MODE, BG Nasal Cannula
--- NOTE | 2019-12-05 09:00 | NUR ---
QUANTIFERON TB GOLD RESULT FOLLOW UP MADE WITH MEDICAL RECORDS REGARDING PT'S QUANTIFERON TB GOLD RESULT WHICH WAS OBTAINED FROM LAB INSTEAD WITH NEGATIVE RESULT.PLACED COPY OF QUANTIFERON TB GOLD RESULT IN THE CHART.
[2019-12-05] MEDS: NITROGLYCERIN 30 GM TUBE TP SCH ×2 (09:13→20:45)
[2019-12-05] MEDS: HYDROCORTISONE SOD SUCCINATE 100 MG/2 ML VIAL IV SCH ×2 (09:14→17:11)
[2019-12-05] MEDS: NIFEdipine XL 60 MG TAB PO SCH (09:14)
[2019-12-05] MEDS: hydrALAZINE HCL 50 MG TABLET PO SCH ×3 (09:14→17:11)
[2019-12-05] MEDS: HEPARIN SODIUM, PORCINE 5000 UNITS/1 ML VIAL SQ SCH ×2 (09:31→20:44)
[2019-12-05] MEDS: HYDROCODONE/APAP 5/325MG 1 EACH TABLET PO PRN (18:32)
--- NOTE | 2019-12-05 20:00 | NUR ---
RN NOTES RECEIVED PT. AWAKE ON BED SR ON TELE MONITOR HR-81, NOT IN DISTRESS, NO PAIN NOTED, CALL LIGHT WITHIN REACH, SIDERAILSUPX2, CONTINUE TO MONITOR
[2019-12-06] VITALS (7 sets, daily range): BP systolic 119–152; BP diastolic 61–71
--- NOTE | 2019-12-06 | NUR ---
RN NOTES BLOOD SUGAR-282, NO COVERAGE WAS GIVEN, PT. WAS TOO SLEEPY TO EAT
[2019-12-06 06:10] LABS: BASOPHILS % (AUTO) 0.4 % (0.0-2.0); EOSINOPHILS % (AUTO) 0.4 % (0.0-6.0); HEMATOCRIT 30 % (33-45); HEMOGLOBIN 9.6 g/dL (11.5-14.8); LYMPHOCYTES # (AUTO) 1.5 /CMM (0.8-4.8); MEAN CORPUSCULAR HGB CONC 33 g/dl (31.0-36.0); MEAN CORPUSCULAR VOLUME 88 fL (82-100); NEUTROPHILS # (AUTO) 10.2 /CMM (1.8-8.9); NEUTROPHILS % (AUTO) 79.2 % (43.0-81.0); PLATELET COUNT (AUTO) 227 /CMM (150-450); RED BLOOD CELL COUNT(AUTO) 3.38 MIL/uL (4.0-5.2); WHITE BLOOD COUNT (AUTO) 12.9 K/uL (4.3-11.0)
[2019-12-06] MEDS: INSULIN REGULAR, HUMAN 100 UNIT/ML 3 ML VIAL SQ PRN ×4 (06:23→23:07)
[2019-12-06] MEDS: BLOOD SUGAR DIAGNOSTIC 1 EACH STRIP IN SCH ×4 (06:25→23:06)
[2019-12-06 06:40] LABS: CALCIUM, SERUM 8.8 mg/dL (8.5-10.1); CARBON DIOXIDE 30 mmol/L (21-32); CHLORIDE 105 mmol/L (98-107); CREATININE 1.9 mg/dL (0.6-1.3); GLUCOSE 172 mg/dL (74-106); MAGNESIUM 1.8 mg/dL (1.8-2.4); PHOSPHORUS 3.3 mg/dL (2.5-4.9); POTASSIUM 4.2 mmol/L (3.5-5.1); SODIUM SERUM 139 mmol/L (136-145); UREA NITROGEN, BLOOD 32 mg/dL (7-18)
--- NOTE | 2019-12-06 06:50 | NUR ---
RN NOTES AWAKE, MORNING CARE RENDERED, DENIES PAIN, NO SOB, SIDERAILSUPX2, PT.NEEDS ATTENDED
--- NOTE | 2019-12-06 07:20 | NUR ---
TERRAZZO LAYER HELPER NOTES RECEIVED PATIENT IN BED, ALERT AND ORIENTED X2-3 WITH EPISODES OF FORGETFULNESS. HOB ELEVATED. NO SOB. ON 02 # 4/MIN VIA NC SAMINA WELL. ON TELE MONITORING SR: 67. F/C INTACT AND PATENT DRAINING YELLOW COLORED URINE VIA BEDSIDE VIA GRAVITY. TREVOR PICC LINE INTACT AND PATENT. BED IN LOWEST POSITION, LOCKED. BED ALARM ON. CALL LIGHT WITHIN REACH.
[2019-12-06] MEDS: GLUCERNA SHAKE 237 ML CAN PO SCH (08:57)
[2019-12-06] MEDS: NIFEdipine XL 60 MG TAB PO SCH (08:57)
[2019-12-06] MEDS: HYDROCORTISONE SOD SUCCINATE 100 MG/2 ML VIAL IV SCH ×2 (08:57→17:27)
[2019-12-06] MEDS: HEPARIN SODIUM, PORCINE 5000 UNITS/1 ML VIAL SQ SCH ×2 (08:58→20:28)
[2019-12-06] MEDS: NITROGLYCERIN 30 GM TUBE TP SCH ×2 (09:00→20:27)
[2019-12-06] MEDS: hydrALAZINE HCL 50 MG TABLET PO SCH ×3 (09:02→17:27)
--- NOTE | 2019-12-06 10:15 | NUR ---
WORM RAISER NOTES PATIENT ON O2 @2L/MIN WITH SPO2 OF 99% Addendum: 12/06/19 at 1017 by ANCELMO FLORENTINO RN PATIENT WHEN ASLEEP ON ROOM AIR SPO2 91-92 % WHEN AWAKE, 92-99% SPO2. ON ROOM AIR.
--- NOTE | 2019-12-06 10:32 | NUR ---
WOUND CARE CONSULT: REVIEWED CHART, NURSING DOCUMENTATION AND PHOTOS. PER NURSING DOCUMENTATION, PT HAS INCONTINENCE/MOISTURE ASSOCIATED SKIN DAMAGE TO BUTTOCKS AND REDNESS TO INNER THIGHS. RECOMMEND SURGICAL CONSULT. DR MEDINA NOTIFIED OF CONSULT REQUEST. PT WAS NOTED TO BE GETTING OUT OF BED AND WAS ASSISTED BACK TO BED BY STAFF. RECOMMEND LOW AIRLOSS BED (CINTHYA ISOFLEX) TO BE PLACED. MD IN AGREEMENT WITH PLAN OF CARE.
[2019-12-06] MEDS: HYDROCODONE/APAP 5/325MG 1 EACH TABLET PO PRN ×2 (12:31→23:40)
--- NOTE | 2019-12-06 19:00 | NUR ---
RECREATION THERAPY AIDE NOTES PATIENT RESTING COMFORTABLY IN BED, HOB ELEVATED. NO SOB. REMAIN ON O2 @ 2L/MIN ON AND OFF. PATIENT WITH EPISODES OF SAMINA ROOM AIR. PATIENT GETS SOB DURING AND AFTER TRANSFER OF BEDSIDE COMMODE. NO DIARRHEA NOTED DURING THE SHIFT. F/C INTACT AND PATENT DRAINING YELLOW COLORED URINE VIA BEDSIDE VIA GRAVITY. TREVOR PICC LINE INTACT AND PATENT. BED IN LOWEST POSITION, LOCKED. BED ALARM ON. CALL LIGHT WITHIN REACH. IN NO APPARENT DISTRESS.
--- NOTE | 2019-12-06 19:30 | NUR ---
SEPTIC CLEANER OPENING NOTES: RECEIVED PT ON ROOM AIR AND IS TOLERATING WELL. NO SOB NOTED. NO S/S OF DISTRESS. PT WATCHING TELEVISION AT THIS TIME. PT ON TELE MONITOR AND READING SHOWS SR 76. PT HAS JUNIOR CATH AND IS ATTACHED TO DRAINAGE BAG WITH URINE DRAINING. PT HAS TREVOR PICC LINE. CURRENTLY H/L AT THIS TIME. BED KEPT IN LOW, LOCKED POSITION, AND SIDE RAILS X 2UP. WILL CONTINUE TO MONITOR PT.
--- NOTE | 2019-12-06 23:07 | NUR ---
PATTERNMAKER NOTES: BLOOD SUGAR THIS PM WAS 303. 8 UNITS OF INSULIN WAS ADMINISTERED. PT ALSO EATING. WILL CONTINUE TO MONITOR.
--- NOTE | 2019-12-06 23:43 | NUR ---
FLOATER OPERATOR NOTES: PT COMPLAINING OF 7/10 SACRAL ACHY PAIN. PT WAS ADMINISTERED NORCO 5 PO. WILL CONTINUE TO MONITOR.
[2019-12-07] VITALS (7 sets, daily range): BP systolic 100–159; BP diastolic 50–82
[2019-12-07] MEDS: BLOOD SUGAR DIAGNOSTIC 1 EACH STRIP IN SCH ×3 (05:26→16:49)
[2019-12-07] MEDS: INSULIN REGULAR, HUMAN 100 UNIT/ML 3 ML VIAL SQ PRN ×3 (05:28→16:59)
--- NOTE | 2019-12-07 05:28 | NUR ---
MEAT CUTTING BLOCK REPAIRER NOTES: BLOOD SUGAR THIS AM WAS 176. 3 UNITS OF INSULIN WAS ADMINISTERED. SNACK WAS PROVIDED. WOUND TX PERFORMED ORDERED WELL.
--- NOTE | 2019-12-07 06:32 | NUR ---
SOLAR ENERGY SYSTEM INSTALLER NOTES: PT ON TELE MONITOR AND READING IS SR 78.
--- NOTE | 2019-12-07 06:52 | NUR ---
SCREEN PRINT OPERATOR CLOSING NOTES: ALL NEEDS WERE ATTENDED AND ANTICIPATED FOR. PT KEPT CLEAN, DRY, AND COMFORTABLE. PT REMAINS ON 1LPM VIA NC AND IS TOLERATING WELL. PT HAS TREVOR PICC LINE TRIPLE LUMEN AND HAS BEEN FLUSHED. PT H/L AT THIS TIME. PT IS A/O2-3 AND HAS PERIODS OF FORGETFULNESS. WOUND TX PERFORMED THIS MORNING ORDERED. PT HAS JUNIOR CATH AND IS ATTACHED TO DRAINAGE BAG WITH URINE DRAINING OUTPUT WAS 2100ML. BED KEPT IN LOW, LOCKED POSITION, AND SIDE RAILS X 2 UP. BED ALARM ACTIVATED. ENDORSED TO AM NURSE FOR ILENE.
--- NOTE | 2019-12-07 07:21 | NUR ---
ELECTRIC RANGE ASSEMBLER NOTES: ENDORSED TO ELISE GOEL, FOR ILENE.
--- NOTE | 2019-12-07 07:56 | NUR ---
TEMPERING MACHINE OPERATOR OPENING NOTE Patient is resting in bed, A/O x1-2, confused, showing no signs of acute distress or SOB, saturating 96% on 2L NC. Tele monitor SR 70s. TAZ PICC triple lumen patent and flushing well. Urbina catheter noted with clear yellow output. Bed is in lowest position, side rails x3 in upright position, call light is within reach, fall safety and aspiration precautions enforced. Will continue with plan of care.
[2019-12-07] MEDS: GLUCERNA SHAKE 237 ML CAN PO SCH (08:00)
--- NOTE | 2019-12-07 08:00 | NUR ---
AGRIBUSINESS INTERNSHIP NOTE Patient has low grade temp of 99.6. Cooling measures initiated. will continue to monitor Addendum: 12/07/19 at 1934 by CEE PAZ RN disregard this note. Documented on wrong patient.
--- NOTE | 2019-12-07 08:07 | NUR ---
RT PER POLICY DAILY ABGS CANCELLED PATIENT NO LONGER IN ICU AND DOES NOT REQUIRE DAILY ABGS
[2019-12-07] MEDS: hydrALAZINE HCL 50 MG TABLET PO SCH ×3 (09:00→16:39)
[2019-12-07] MEDS: NITROGLYCERIN 30 GM TUBE TP SCH ×2 (09:00→20:34)
[2019-12-07] MEDS: NIFEdipine XL 60 MG TAB PO SCH (09:00)
[2019-12-07] MEDS: HYDROCORTISONE SOD SUCCINATE 100 MG/2 ML VIAL IV SCH ×2 (09:11→16:36)
[2019-12-07] MEDS: HYDROCODONE/APAP 5/325MG 1 EACH TABLET PO PRN (14:55)
[2019-12-07] MEDS: IPRATROPIUM BROMIDE 14 GM INHALER (or 12.9 GM) IH PRN (16:40)
--- NOTE | 2019-12-07 19:21 | NUR ---
STONEHAND CLOSING NOTE Patient is resting in bed, A/O x1-2, confused, showing no signs of acute distress or SOB, saturating 96% on 2L NC. Tele monitor SR 70s. TAZ PICC triple lumen patent and flushing well. Urbina catheter noted with clear yellow output 1200cc out today. All patient needs met, all due medications given. Patient kept clean and dry throughout shift. Bed is in lowest position, side rails x3 in upright position, call light is within reach, fall safety and aspiration precautions enforced. Will endorse to manufacturing shift supervisor.
--- NOTE | 2019-12-07 19:30 | NUR ---
ASSISTANT DESIGNER NOTES PATIENT IN BED, AWAKE, ALERT AND ORIENTED X 2-3. CONFUSED AT TIMES. BREATHING EVEN AND UNLABORED ON 2L NC. SHOWS NO SIGNS OF ACUTE RESPIRATORY DISTRESS, NO ACUTE PAIN. TELE MONITOR SR 80'S. JUNIOR CATHETER IS CLEAN DRY AND INTACT FLOWING YELLOW URINE. LFA PICC TRIPLE LUMEN IS CLEAN DRY AND INTACT. SHOWS NO SIGNS OF INFILTRATION, NO REDNESS. SAFETY PRECAUTIONS IN PLACE. BED IN LOWEST POSITION, LOCKED, AND CALL LIGHT KEPT WITHIN REACH. WILL CONTINUE TO MONITOR.
[2019-12-07] MEDS: ACETAMINOPHEN 325 MG TABLET PO PRN (20:41)
--- NOTE | 2019-12-07 20:41 | NUR ---
FELT CARBONIZER NOTES PATIENT COMPLAINING ON PAIN ON BUTTOCKS. CHANGED DRESSING AND GIVEN TYLENOL AT 2040. WILL CONTINUE TO MONITOR.
[2019-12-08] VITALS (7 sets, daily range): BP systolic 105–156; BP diastolic 55–89
[2019-12-08] MEDS: BLOOD SUGAR DIAGNOSTIC 1 EACH STRIP IN SCH ×5 (00:20→23:42)
[2019-12-08] MEDS: INSULIN REGULAR, HUMAN 100 UNIT/ML 3 ML VIAL SQ PRN ×5 (00:20→23:43)
[2019-12-08 06:46] LABS: BASOPHILS # (AUTO) 0.1 /CMM (0.0-0.2); BASOPHILS % (AUTO) 1.1 % (0.0-2.0); HEMATOCRIT 31 % (33-45); HEMOGLOBIN 10.2 g/dL (11.5-14.8); LYMPHOCYTES # (AUTO) 2.5 /CMM (0.8-4.8); LYMPHOCYTES % (AUTO) 22.6 % (20.0-44.0); MEAN CORPUSCULAR HGB CONC 33 g/dl (31.0-36.0); MEAN CORPUSCULAR VOLUME 88 fL (82-100); MONOCYTES # (AUTO) 1.2 /CMM (0.1-1.30); MONOCYTES % (AUTO) 11.4 % (2.0-12.0); NEUTROPHILS # (AUTO) 6.9 /CMM (1.8-8.9); NEUTROPHILS % (AUTO) 63.9 % (43.0-81.0); PLATELET COUNT (AUTO) 200 /CMM (150-450); RED BLOOD CELL COUNT(AUTO) 3.56 MIL/uL (4.0-5.2); WHITE BLOOD COUNT (AUTO) 10.8 K/uL (4.3-11.0)
--- NOTE | 2019-12-08 06:55 | NUR ---
DATA OPERATIONS LEADER NOTES PATIENT IN BED, ASLEEP, ALERT AND ORIENTED X 2-3. CONFUSED AT TIMES. BREATHING EVEN AND UNLABORED ON 2L NC. SHOWS NO SIGNS OF ACUTE RESPIRATORY DISTRESS, NO ACUTE PAIN. TELE MONITOR SR 80'S. JUNIOR CATHETER IS CLEAN DRY AND INTACT FLOWING YELLOW URINE. LFA PICC TRIPLE LUMEN IS CLEAN DRY AND INTACT. SHOWS NO SIGNS OF INFILTRATION, NO REDNESS. ALL DUE MEDICATIONS GIVEN. SAFETY PRECAUTIONS IN PLACE. BED IN LOWEST POSITION, LOCKED, AND CALL LIGHT KEPT WITHIN REACH. WILL ENDORSE TO ONCOMING NURSE.
[2019-12-08] MEDS: GLUCERNA SHAKE 237 ML CAN PO SCH (08:00)
[2019-12-08] MEDS: IPRATROPIUM BROMIDE 14 GM INHALER (or 12.9 GM) IH PRN (08:07)
[2019-12-08] MEDS: HYDROCORTISONE SOD SUCCINATE 100 MG/2 ML VIAL IV SCH ×2 (08:49→18:28)
[2019-12-08] MEDS: NITROGLYCERIN 30 GM TUBE TP SCH ×2 (08:50→20:34)
[2019-12-08] MEDS: hydrALAZINE HCL 50 MG TABLET PO SCH ×3 (08:50→18:29)
[2019-12-08] MEDS: NIFEdipine XL 60 MG TAB PO SCH (08:50)
--- NOTE | 2019-12-08 10:00 | NUR ---
pER FLAKITA Aguilar PLAN TO D/C PATIENT BACK TO FACILITY SECOND SWAB CAME BACK
--- NOTE | 2019-12-08 19:10 | NUR ---
PATIENT RESTING IN BED.ALL NEEDS ATTENDED AND ANTICIPATED .PT KEPT CLEAN, DRY, AND COMFORTABLE. PT ON ROOM AIR AND IS TOLERATING WELL. PT HAS TREVOR PICC LINE TRIPLE LUMEN FLUSHING WELL. PT IS A/O2 AND FORGETFUL. WOUND TX PERFORMED ORDERED. HAS JUNIOR CATH IN PLACE; DRAINING WELL. BED KEPT IN LOW, LOCKED POSITION, AND SIDE RAILS X 2 UP. BED ALARM ACTIVATED.WILL ENDORSE TO NEXT SHIFT FOR ILENE
--- NOTE | 2019-12-08 19:30 | NUR ---
FIELD SALES CONSULTANT OPENING NOTES RECEIVED PATIENT FROM MORNING SHIFT, ALERT AND ORIENTED X 2-3 WITH EPISODES OF CONFUSION. VERBALLY RESPONSIVE AND ABLE TO FOLLOW DIRECTIONS. BREATHING REGULAR AND UNLABORED ON OXYGEN AT 2L/MIN VIA NASAL CANNULA. ON CARDIAC MONITORING WITH NSR AT 89bpm. LEFT UPPER ARM PICC LINE INTACT AND PATENT, FLUSHING WELL WITH NO BLEEDING OR S/S OF INFILTRATION/INFECTION NOTED. NO COMPLAINTS OF PAIN/DISCOMFORT REPORTED AT THIS TIME. BED LOW AND LOCKED ON SEMI FOWLERS POSITION. CALL LIGHT IN REACH. WILL CONTINUE TO MONITOR.
[2019-12-08] MEDS: HYDROCODONE/APAP 5/325MG 1 EACH TABLET PO PRN (21:37)
--- NOTE | 2019-12-08 21:40 | NUR ---
BENCH LATHE OPERATOR NOTES COMPLAINED OF 7/10 SACRAL WOUND PAIN, NORCO 5/325 GIVEN BY MOUTH. NON-PHARMACOLOGICAL INTERVENTIONS PROVIDED. VITAL SIGNS WNL. CHANGE WOUND DRESSING NEEDED. WILL CONTINUE TO MONITOR.
[2019-12-09] VITALS: BP 148/80
--- NOTE | 2019-12-09 | NUR ---
MATERIAL HANDLER 1ST SHIFT NOTES BS 137mg/dl, 2UNITS REGULAR INSULIN GIVEN. SNACKS PROVIDED ON BEDSIDE. WILL CONTINUE TO MONITOR.
[2019-12-09] MEDS: BLOOD SUGAR DIAGNOSTIC 1 EACH STRIP IN SCH ×2 (05:51→13:07)
[2019-12-09] MEDS: INSULIN REGULAR, HUMAN 100 UNIT/ML 3 ML VIAL SQ PRN ×2 (05:51→13:08)
--- NOTE | 2019-12-09 06:15 | NUR ---
MECHANICAL ENGINEERING OFFICER CLOSING NOTES PATIENT IN BED ALERT AND ORIENTED X 2-3 WITH EPISODES OF CONFUSION. AFEBRILE WITH NO S/S OF DISTRESS OBSERVED. MAINTAINED ON CARDIAC MONITORING WITH NSR AT 68bpm. LEFT UPPER ARM PICC LINE PATENT AND FLUSHING WELL. NO COMPLAINTS OF PAIN/DISCOMFORT REPORTED AT THIS TIME. BED LOW AND LOCKED ON SEMI FOWLERS POSITION. CALL LIGHT IN REACH. WILL ENDORSE TO MORNING SHIFT FOR ILENE.
--- NOTE | 2019-12-09 07:30 | NUR ---
Tele/RN Opening Note Received patient in bed, AO x 2-3, able to responds all stimuli. Denies pain or any discomfort. Respiratory even and unlabored with oxygen at 2LPM, O2sat 96%, no sob or distress observed. Skin is warm to touch, kept clean/dry, intact IV site. Keep low position of bed with locked wheel and elevated head of bed for secure airway. Call light within reach, will continue to monitor.
[2019-12-09 08:00] VITALS: BP 140/46
[2019-12-09] MEDS: hydrALAZINE HCL 50 MG TABLET PO SCH ×2 (08:19→13:28)
[2019-12-09] MEDS: HYDROCORTISONE SOD SUCCINATE 100 MG/2 ML VIAL IV SCH (08:19)
[2019-12-09] MEDS: NIFEdipine XL 60 MG TAB PO SCH (08:19)
[2019-12-09] MEDS: GLUCERNA SHAKE 237 ML CAN PO SCH (08:28)
[2019-12-09] MEDS: NITROGLYCERIN 30 GM TUBE TP SCH (08:29)
[2019-12-09] MEDS ORDERED: ENOXAPARIN SODIUM 40 MG/0.4 ML DISP.SYRIN SQ SCH (09:30)
[2019-12-09 16:00] VITALS: BP 152/80
[2019-12-09] MEDS ORDERED: ENOX40DI SQ (16:28)
[2019-12-09] MEDS ORDERED: NIFE-34 PO (16:28)
[2019-12-09] MEDS ORDERED: HYDR-4077 PO (16:28)
--- NOTE | 2019-12-09 16:50 | NUR ---
Patient discharge to [facility] and given report gagan/BAND SINGER. Patient refused sign belongings form, discharge instruction form. Wound picture taken before patient discharge.
== END 2019-12-09 16:50 | DRG 870 ==
LOC: ER 22:43 → ICU 11-22 00:33 → TELE-TD 11-30 11:09 → TELE1 12-01 07:47 → TELE-TD 12-02 14:10 → TELE1 12-02 17:47 → TELE2 12-02 22:43
PROVIDERS: ADMIT Nurse Practitioner Acute Care; ATTEND Nurse Practitioner Acute Care
PROC: 5A1955Z Respiratory Ventilation, Greater than 96 Consecutive Hours (ICD-10-PCS; principal; 2019-11-21)
PROC: 0BH17EZ Insertion of Endotracheal Airway into Trachea, Via Natural or Artificial Opening (ICD-10-PCS; 2019-11-21)
PROC: 02HV33Z Insertion of Infusion Device into Superior Vena Cava, Percutaneous Approach (ICD-10-PCS; 2019-11-22)
PROC: B548ZZA Ultrasonography of Superior Vena Cava, Guidance (ICD-10-PCS; 2019-11-22)
DX: A41.89 Other specified sepsis (principal); U07.1 COVID-19; J12.89 Other viral pneumonia; J96.01 Acute respiratory failure with hypoxia; N17.0 Acute kidney failure with tubular necrosis; R65.21 Severe sepsis with septic shock; E44.1 Mild protein-calorie malnutrition; D68.59 Other primary thrombophilia; J44.0 Chronic obstructive pulmonary disease with (acute) lower respiratory infection; N39.0 Urinary tract infection, site not specified; E87.2 Acidosis; E87.1 Hypo-osmolality and hyponatremia; Z68.41 Body mass index [BMI] 40.0-44.9, adult; J98.11 Atelectasis; E87.0 Hyperosmolality and hypernatremia; I12.9 Hypertensive chronic kidney disease with stage 1 through stage 4 chronic kidney disease, or unspecified chronic kidney disease; N18.9 Chronic kidney disease, unspecified; K21.9 Gastro-esophageal reflux disease without esophagitis; Z79.84 Long term (current) use of oral hypoglycemic drugs; Z79.899 Other long term (current) drug therapy; E66.01 Morbid (severe) obesity due to excess calories; E78.5 Hyperlipidemia, unspecified; E11.65 Type 2 diabetes mellitus with hyperglycemia; E11.40 Type 2 diabetes mellitus with diabetic neuropathy, unspecified; E11.22 Type 2 diabetes mellitus with diabetic chronic kidney disease; E86.1 Hypovolemia; F41.9 Anxiety disorder, unspecified; G47.00 Insomnia, unspecified; I70.0 Atherosclerosis of aorta; K59.00 Constipation, unspecified; M19.012 Primary osteoarthritis, left shoulder; M19.90 Unspecified osteoarthritis, unspecified site; L30.4 Erythema intertrigo; L89.156 Pressure-induced deep tissue damage of sacral region; T38.0X5A Adverse effect of glucocorticoids and synthetic analogues, initial encounter; Y92.009 Unspecified place in unspecified non-institutional (private) residence as the place of occurrence of the external cause; R00.1 Bradycardia, unspecified; R19.7 Diarrhea, unspecified; T36.95XA Adverse effect of unspecified systemic antibiotic, initial encounter; Y92.89 Other specified places as the place of occurrence of the external cause
CPT/HCPCS: 31720; 36415; 36569; 36600; 71045-TC; 80048-TC; 80053-TC; 80061-TC; 80076-TC; 81000-TC; 82533; 82728-TC; 82803-TC; 82962-TC; 83605-TC; 83615-TC; 83735-TC; 83880; 84100-TC; 84484-TC; 85025-TC; 85378-TC; 85730-TC; 86140-TC; 86480; 87040-TC; 87070-TC; 87081-TC; 87086-TC; 92611-TC; 94002-TC; 94003-TC; 94760-TC; 94799-TC; 97116-TC; 97530-TC; A6253; C1751; G0378; J0360; J0456; J0696; J1200; J1644; J1650; J1720; J1815; J2543; J3262; J3475; J3490; J7030; J7040; J7042; J7050; J7060; J7070